=== PATIENT | male | born 1940 | race Caucasian/White ===

== ENCOUNTER 2018-11-23 15:33 | Inpatient (IN) | payer MEDICARE ==
[~2018-11-23] VITALS: Ht 182.9 cm; Wt 93.3 kg
[2018-11-23] MEDS ORDERED: TETANUS-DIPTH-ACEL PERTUSSIS 0.5ML SYRG IM ONE (16:30)
[2018-11-23] MEDS ORDERED: ETOMIDATE (2MG/ML) 20ML VIAL IV ONE (18:00)
[2018-11-23] MEDS ORDERED: hydrALAZINE HCL 20 MG/ML VL IV ONE (18:15)
[2018-11-23 20:41] LABS: Basophils # (auto) 0 uL; Basophils % (auto) 0.2 % (0.0-2.0); Eosinophils # (auto) 0 uL; Eosinophils % (auto) 0.1 % (0.0-7.0); Hemoglobin 16.1 g/dL (13.5-17.5); Lymphocytes # (auto) 1.1 uL; Lymphocytes % (auto) 11.8 % (10.0-50.0); Mean Corpuscular Hemoglobin 31.6 pg (28.0-32.0); Mean Corpuscular Hgb Conc. 34.2 g/dL (32.0-36.0); Mean Corpuscular Volume 92.3 fL (80.0-100.0); Monocytes # (auto) 0.8 uL; Monocytes % (auto) 8.7 % (0.0-12.0); Neutrophils # (auto) 7.7 uL; Neutrophils % (auto) 79.2 % (37.0-80.0); Nucleated Red Blood Cells % 0.1 %; Platelet Count (auto) 184 10^3/uL (140-450); Red Blood Cells 5.09 10^6/uL (4.5-5.90); Red Cell Distribution Width 13.7 % (11.8-14.3); White Blood Cell 9.7 10^3/uL (4.4-10.8)
[2018-11-23 20:56] LABS: INR 0.97 (0.9-1.15); Partial Thromboplastin Time 26.9 sec (23.78-33.04); Prothrombin Time 10.4 sec (9.27-12.13)
[2018-11-23 21:15] LABS: Albumin 3.8 g/dL (3.4-5.0); Calcium 8.7 mg/dL (8.5-10.1); Potassium 3.5 mmol/L (3.5-5.1)
[2018-11-23 21:19] LABS: BUN/Creatinine Ratio 23.6; Bilirubin, Total 0.8 mg/dL (0.2-1.0); Total Protein 7.5 g/dL (6.4-8.2)
[2018-11-23] MEDS ORDERED: ACETAMINOPHEN 500 MG TAB PO PRN (22:00)
[2018-11-23] MEDS ORDERED: MORPHINE SULFATE 4 MG/ML SYR/VIAL IV PRN (22:00)
[2018-11-23] MEDS ORDERED: cloNIDine HCL 0.1 MG TAB PO PRN (22:00)
[2018-11-23] MEDS ORDERED: ALBUTEROL SULF 2.5 MG/0.5ML(0.5%) NEB SOLN NEB PRN (22:00)
[2018-11-23] MEDS: ONDANSETRON HCL 4 MG/2 ML VIAL IV PRN (22:18)
[2018-11-24 01:23] VITALS: BP 156/95
[2018-11-24] MEDS: ONDANSETRON HCL 4 MG/2 ML VIAL IV PRN ×2 (02:58→16:27)
--- NOTE | 2018-11-24 03:30 | NUR ---
PATIENT TRANSFERRED TO ROOM 283 WITH ALL BELONGINGS. NO S/S OF DISTRESS NOTED AT TIME OF TRANSPORT. PATIENT ORIENTED TO NEW ROOM, BED ALARM PLACED ON. CALL LIGHT PLACED WITHIN REACH.
[2018-11-24 04:38] VITALS: BP 154/83
[2018-11-24] MEDS ORDERED: IBUP200C3 PO (06:33)
[2018-11-24] MEDS ORDERED: CETI10TA93 PO (06:33)
[2018-11-24] MEDS ORDERED: DOXA1TAB84 PO (06:33)
[2018-11-24] MEDS ORDERED: DILT120C41 PO (06:33)
[2018-11-24] MEDS ORDERED: LEVO25TA6 PO (06:33)
[2018-11-24] MEDS ORDERED: FLEC50TA15 PO (06:33)
[2018-11-24] MEDS ORDERED: BENA40TA7 PO (06:33)
[2018-11-24] MEDS ORDERED: ASPI325T4 PO (06:33)
[2018-11-24] MEDS ORDERED: LEVO0.5S24 OP (06:33)
[2018-11-24] MEDS ORDERED: CHOL20007 OR (06:33)
[2018-11-24] MEDS ORDERED: DOXY100C2 PO (06:33)
[2018-11-24] MEDS ORDERED: ATOR20TA PO (06:33)
[2018-11-24] MEDS ORDERED: LATA0.0015 EACHEYE (06:33)
[2018-11-24] MEDS ORDERED: PRED1PAK10 PO (06:33)
[2018-11-24] MEDS ORDERED: LORA-622 PO (06:33)
[2018-11-24] MEDS ORDERED: HYDR50TA15 PO (06:33)
[2018-11-24] MEDS ORDERED: BRIM0.159 OP (06:33)
[2018-11-24] MEDS ORDERED: OLOP1DRO2 OP (06:33)
[2018-11-24] MEDS: LEVOTHYROXINE SODIUM 25 MCG TAB PO SCH (06:55)
[2018-11-24 08:32] VITALS: BP 128/63
[2018-11-24 09:17] LABS: Basophils # (auto) 0 uL; Basophils % (auto) 0.3 % (0.0-2.0); Eosinophils # (auto) 0 uL; Eosinophils % (auto) 0.3 % (0.0-7.0); Hematocrit 46.7 % (41.0-53.0); Hemoglobin 15.9 g/dL (13.5-17.5); Mean Corpuscular Hemoglobin 31.4 pg (28.0-32.0); Mean Corpuscular Hgb Conc. 34.2 g/dL (32.0-36.0); Mean Corpuscular Volume 91.9 fL (80.0-100.0); Monocytes % (auto) 9.6 % (0.0-12.0); Neutrophils # (auto) 8.6 uL; Neutrophils % (auto) 80.8 % (37.0-80.0); Nucleated Red Blood Cells % 0.1 %; Platelet Count (auto) 154 10^3/uL (140-450); Red Blood Cells 5.08 10^6/uL (4.5-5.90); Red Cell Distribution Width 13.7 % (11.8-14.3); White Blood Cell 10.6 10^3/uL (4.4-10.8)
[2018-11-24 09:35] LABS: Calcium 8.4 mg/dL (8.5-10.1); Potassium 3.3 mmol/L (3.5-5.1)
[2018-11-24] MEDS ORDERED: ASPirin-EC 81 mg tab PO SCH (10:00)
[2018-11-24] MEDS: OPTH OP SCH ×2 (10:08→22:07)
[2018-11-24] MEDS: BRIMONIDINE 0.2% OPTH Soln 5ml EACHEYE SCH ×2 (10:08→22:13)
[2018-11-24] MEDS: LEVOBUNOLOL 0.5% OP SCH ×2 (10:08→22:07)
[2018-11-24] MEDS: DILTIAZEM HCL 120MG ER CAP PO SCH (10:09)
[2018-11-24] MEDS: OLOPATADINE 0.1% OP SCH ×2 (10:09→22:14)
[2018-11-24] MEDS: hydrALAZINE HCL 25 MG TAB PO SCH ×2 (10:10→22:06)
[2018-11-24] MEDS: BENAZEPRIL HCL 10 MG TAB PO SCH (10:10)
--- NOTE | 2018-11-24 12:40 | NUR ---
PAGED DR. MODI PATIENT REQUESTING HOME MEDS TO BE ADDED TO [facility]
[2018-11-24 13:00] VITALS: BP 129/70
[2018-11-24 16:57] VITALS: BP 154/105
[2018-11-24 22:00] VITALS: BP 148/85
[2018-11-24] MEDS: ATORVASTATIN 20 MG TAB PO SCH (22:06)
[2018-11-24] MEDS: DOXAZOSIN MESYL 2 MG TAB PO SCH (22:07)
[2018-11-24] MEDS: LATANOPROST 0.005 % OPTH(EYE) SOL 2.5ML EACHEYE SCH (22:23)
--- NOTE | 2018-11-25 00:40 | NUR ---
RT NOTE: PT SLEEPING WITH NO DISTRESS NOTED AT THIS TIME. PT HAS 2LPM NC SPO2 96%, HR 68, RR 16. NO TX INDICATED AT THIS TIME.
[2018-11-25 05:00] VITALS: BP 116/64
--- NOTE | 2018-11-25 06:24 | NUR ---
Respiratory note: PRN MN TX NOT WANTED AT THIS TIME. HR 72, RR 14,POX 96% ON RA, BS CLEAR AND DIMINISHED.PT INFORMED TO HIT CALL BUTTON IF FEELING SOB OR WHEEZING.
[2018-11-25] MEDS: LEVOTHYROXINE SODIUM 25 MCG TAB PO SCH (06:58)
[2018-11-25 09:00] VITALS: BP 132/75
[2018-11-25] MEDS: LEVOBUNOLOL 0.5% OP SCH ×2 (10:27→21:44)
[2018-11-25] MEDS: OPTH OP SCH ×2 (10:27→21:44)
[2018-11-25] MEDS: OLOPATADINE 0.1% OP SCH ×2 (10:27→21:46)
[2018-11-25] MEDS: BRIMONIDINE 0.2% OPTH Soln 5ml EACHEYE SCH ×2 (10:27→21:44)
[2018-11-25] MEDS: DILTIAZEM HCL 120MG ER CAP PO SCH (10:28)
[2018-11-25] MEDS: BENAZEPRIL HCL 10 MG TAB PO SCH (10:29)
[2018-11-25] MEDS: hydrALAZINE HCL 25 MG TAB PO SCH ×2 (10:29→21:45)
[2018-11-25 13:00] VITALS: BP 127/70
--- NOTE | 2018-11-25 14:00 | NUR ---
DR. BRUCE PAGED PATIENT NEEDS TO BE CLEARED BY CARDIOLOGY TO HAVE ORIF TOMORROW. NO REPLY.
--- NOTE | 2018-11-25 16:11 | NUR ---
CALLED DR. BRUCE'S OFFICE MESSAGE SENT TO DR. BRUCE REGARDING CARDIO CLEARANCE FOR SURGERY
--- NOTE | 2018-11-25 16:30 | NUR ---
CALL RECEIVED FROM [facility] DR. BRUCE IS STILL IN HOSPITAL. WILL ROUND ON PATIENTS AFTER DONE IN [facility].
[2018-11-25 17:00] VITALS: BP 139/69
[2018-11-25 17:57] LABS: Urine Bacteria NONE SEEN /hpf (None Seen); Urine Blood Negative /uL (Negative); Urine Mucus FEW (None Seen); Urine Specific Gravity 1.018 (1.001-1.035); Urine WBC 2 /hpf (0 - 3)
[2018-11-25] MEDS ORDERED: CALCIUM CARB 500 MG CHEW TAB PO PRN (18:00)
[2018-11-25] MEDS ORDERED: POTASSIUM CHL 20 Meq TABLET PO ONE (18:15)
--- NOTE | 2018-11-25 19:45 | NUR ---
Opening Shift Note Assumed care of patient, awake and alert. No S/S of distress/SOB. Dressing on left leg intact with splint on left foot. Discussed on POC and to be NPO after MN for surgery tomorrow. Consent signed for the procedure, patient declined Blood Transfusion and signed refusal consent, call light within reach, bed alarm on, will continue to monitor for changes Q1hr and PRN.
[2018-11-25 21:18] VITALS: BP 150/87
--- NOTE | 2018-11-25 21:20 | NUR ---
Respiratory note: PT ASSESSED FOR PRN MED NEB TX. HR 65, RR 16,SPO2 995 ON 2L NC,BS COARSE/DIMINISHED. NO SIGNS OF ANY RESPIRATORY DISTRESS NOTED. ADVISED PT TO PLEASE CALL IF NEEDED.
[2018-11-25] MEDS: DOXAZOSIN MESYL 2 MG TAB PO SCH (21:45)
[2018-11-25] MEDS: ATORVASTATIN 20 MG TAB PO SCH (21:45)
[2018-11-25] MEDS: LATANOPROST 0.005 % OPTH(EYE) SOL 2.5ML EACHEYE SCH (22:01)
--- NOTE | 2018-11-26 04:30 | NUR ---
CHG wipes done, all linens changed, maintained on NPO, will continue care
[2018-11-26 05:00] VITALS: BP 134/79
[2018-11-26] MEDS: LEVOTHYROXINE SODIUM 25 MCG TAB PO SCH (06:02)
[2018-11-26 06:33] LABS: Basophils # (auto) 0 uL; Basophils % (auto) 0.4 % (0.0-2.0); Eosinophils # (auto) 0.1 uL; Eosinophils % (auto) 1.4 % (0.0-7.0); Hematocrit 44.8 % (41.0-53.0); Hemoglobin 15.3 g/dL (13.5-17.5); Lymphocytes # (auto) 1.4 uL; Lymphocytes % (auto) 14.3 % (10.0-50.0); Mean Corpuscular Hemoglobin 31.5 pg (28.0-32.0); Mean Corpuscular Hgb Conc. 34.1 g/dL (32.0-36.0); Mean Corpuscular Volume 92.5 fL (80.0-100.0); Monocytes # (auto) 1.2 uL; Monocytes % (auto) 12.9 % (0.0-12.0); Neutrophils # (auto) 6.8 uL; Platelet Count (auto) 137 10^3/uL (140-450); Red Blood Cells 4.85 10^6/uL (4.5-5.90); Red Cell Distribution Width 13.5 % (11.8-14.3); White Blood Cell 9.6 10^3/uL (4.4-10.8)
[2018-11-26 06:39] LABS: Calcium 8.1 mg/dL (8.5-10.1)
[2018-11-26 06:40] LABS: BUN/Creatinine Ratio 17.5
--- NOTE | 2018-11-26 06:40 | NUR ---
Brought down patient to OR, alert/oriented and not in distress. Endorsed to KAY Barrios
[2018-11-26 06:43] LABS: INR 0.96 (0.9-1.15); Partial Thromboplastin Time 26.5 sec (23.78-33.04); Prothrombin Time 10.3 sec (9.27-12.13)
[2018-11-26] MEDS ORDERED: BUPIVACAINE 0.25% INJ 50ML VIAL ONE (06:51)
[2018-11-26] MEDS ORDERED: ceFAZolin 1GM/50ML 50 ML IV ONE (07:19)
[2018-11-26] MEDS ORDERED: ROCURONIUM 10MG/ML 10ML VIAL IV ONE (07:38)
[2018-11-26] MEDS ORDERED: PROPOFOL 10 MG/ML 20 ML IV ONE (07:38)
[2018-11-26] MEDS ORDERED: fentaNYL CITRATE 100 MCG/2 ML VL ONE (07:38)
[2018-11-26] MEDS ORDERED: SUCCINYLCHOLINE CHLORIDE 20 MG/ML 10ML VIAL IV ONE (07:43)
[2018-11-26] MEDS ORDERED: ONDANSETRON HCL 4 MG/2 ML VIAL IV ONE (08:30)
[2018-11-26] MEDS ORDERED: HYDROmorphone HCL 2 MG/ML VL IV PRN (08:30)
[2018-11-26] MEDS ORDERED: MORPHINE SULFATE 4 MG/ML SYR/VIAL IV PRN (08:30)
[2018-11-26] MEDS ORDERED: ePHEDrine SULFATE 50 MG/ML AMP IV PRN (08:30)
[2018-11-26] MEDS ORDERED: hydrALAZINE HCL 20 MG/ML VL IV PRN (08:30)
[2018-11-26 09:23] VITALS: BP 132/77
--- NOTE | 2018-11-26 09:36 | NUR ---
Respiratory note: WENT TO ASSESS PT FOR PRN TX, PT NOT IN ROOM. PT IS HAVING SURGERY AT THIS TIME.
[2018-11-26] MEDS: HYDROmorphone HCL 2 MG/ML VL IV PRN ×4 (11:23→23:03)
[2018-11-26] MEDS: ceFAZolin 1GM/50ML 50 ML IV SCH ×2 (12:00→17:43)
[2018-11-26 12:54] VITALS: BP 158/86
[2018-11-26] MEDS: BRIMONIDINE 0.2% OPTH Soln 5ml EACHEYE SCH ×2 (13:00→22:42)
[2018-11-26] MEDS: hydrALAZINE HCL 25 MG TAB PO SCH ×2 (13:01→22:43)
[2018-11-26] MEDS: OPTH OP SCH ×2 (13:01→22:43)
[2018-11-26] MEDS: OLOPATADINE 0.1% OP SCH ×2 (13:01→22:41)
[2018-11-26] MEDS: LEVOBUNOLOL 0.5% OP SCH ×2 (13:01→22:43)
[2018-11-26] MEDS: DILTIAZEM HCL 120MG ER CAP PO SCH (13:02)
[2018-11-26] MEDS: BENAZEPRIL HCL 10 MG TAB PO SCH (13:03)
[2018-11-26 17:00] VITALS: BP 137/53
--- NOTE | 2018-11-26 19:30 | NUR ---
Opening Shift Note Assumed care of patient, awake and alert. No S/S of distress/SOB. Instructed on POC and to call for assist PRN. Bed in lowest locked position, call light within reach, side rails up x2, fall precautions in place. Will continue to monitor for changes Q1hr and PRN.
--- NOTE | 2018-11-26 20:10 | NUR ---
Respiratory note: PT ASSESSED FOR PRN MED NEB TX. HR 85, RR 16, SPO2 99% ON 2L NC, BS COARSE/DIMINISHED. NO SIGNS OF ANY RESPIRATORY DISTRESS NOTED. ADVISED PT TO PLEASE CALL IF NEEDED.
--- NOTE | 2018-11-26 20:25 | NUR ---
Patient's family per family report, daughter of patient stated that he had fallen at around 1999. Per daughter report, patient "fell and then called my mom, and then she called me to pick her up to bring her but I was already on my way over here." Patient currently sleeping at this time and pain medication was recently given, will ask patient about it once he is awake. Upon assessment no wounds noted. Will continue to monitor. Bed alarm still remains on.
[2018-11-26 21:51] VITALS: BP 137/53
[2018-11-26 22:00] VITALS: BP 161/57
[2018-11-26] MEDS ORDERED: DOXAZOSIN MESYL 2 MG TAB PO SCH (22:00)
[2018-11-26] MEDS ORDERED: hydrALAZINE HCL 25 MG TAB PO SCH (22:00)
--- NOTE | 2018-11-26 22:00 | NUR ---
Rounds Patient now awake. For clarification, asked patient about falling earlier and patient stated "well I tried to get up earlier because I was looking for my phone" asked patient if he did get out of bed and patient stated "yes" asked patient if he fell and patient stated "no, not today, that was the other day, that's why I came in here for" asked patient what happened when he got up patient stated "Well I was looking for my phone so I got up to look for it but I hurt my foot, and then I called my and told her that I set the alarm off when I got up." Verified with patient what happened and asked once more if he fell when he got up, patient stated "no, I didn't fall today." Will continue to monitor, charge nurse aware.
[2018-11-26] MEDS: LATANOPROST 0.005 % OPTH(EYE) SOL 2.5ML EACHEYE SCH (22:42)
[2018-11-26] MEDS: ATORVASTATIN 20 MG TAB PO SCH (22:44)
[2018-11-26] MEDS: DOXAZOSIN MESYL 2 MG TAB PO SCH (22:45)
[2018-11-26] MEDS: ONDANSETRON HCL 4 MG/2 ML VIAL IV PRN (23:03)
--- NOTE | 2018-11-26 23:35 | NUR ---
called and asked why patient wasn't getting pain medication every 2 hours from earlier in the day, educated and informed her that the pain medication is every 2 hours only as needed if the patient was in severe pain. Per she wants pain medication to be given every 2 hours because "he doesn't know, he isn't coherent right now" Informed that pain is what the patient says it is and that pain medication will be given based off of what the patient rates it. Assured that I would assess patient's pain level on my hourly rounds and also informed that the patient has already been instructed to call when he feels like he needs pain medication. aware that I will be assessing patient's pain level throughout the night and will medicate as needed. Will continue care.
[2018-11-27] MEDS: ceFAZolin 1GM/50ML 50 ML IV SCH ×2 (00:05→06:00)
--- NOTE | 2018-11-27 02:20 | NUR ---
IV insertion IV access obtained, via clean sterile technique by inserting 20 gauge catheter at left forarm after 1 attempt. IV secured properly. No trauma to site. Patient tolerated well. NOTE: Patient pulled out old IV, catheter intact, pressure dressing applied.
--- NOTE | 2018-11-27 03:00 | NUR ---
Rounds Patient awake, patient continues to rate his pain at a 3-4/10 since the last time I asked. Asked patient if he needs anything for pain at this moment, patient stated "no, not right now" Patient then verbalized, "Ill call you when I feel I need it." Will continue to monitor.
[2018-11-27 05:00] VITALS: BP 142/97
[2018-11-27] MEDS: LEVOTHYROXINE SODIUM 25 MCG TAB PO SCH (06:01)
[2018-11-27] MEDS: HYDROmorphone HCL 2 MG/ML VL IV PRN ×2 (06:01→16:15)
--- NOTE | 2018-11-27 07:47 | NUR ---
Patient care endorsed Endorsed care to Edelmira ta, patient moved from 283 to room 202 with all personal belongings. I called patients Alexandra to inform her, she verbalized understanding. No distress noted on departure
--- NOTE | 2018-11-27 08:00 | NUR ---
Opening Shift Note Assumed care of patient, awake and alert. No S/S of distress/SOB or pain. Dressing is clean, dry and in tact. Respirations regular and non labored. Instructed on POC and to call for assist PRN, will continue to monitor for changes Q1hr and PRN.
[2018-11-27 09:00] VITALS: BP 135/74
[2018-11-27] MEDS: BRIMONIDINE 0.2% OPTH Soln 5ml EACHEYE SCH ×2 (10:27→22:47)
[2018-11-27] MEDS: OPTH OP SCH ×2 (10:27→22:47)
[2018-11-27] MEDS: LEVOBUNOLOL 0.5% OP SCH ×2 (10:27→22:47)
[2018-11-27] MEDS: hydrALAZINE HCL 25 MG TAB PO SCH ×2 (10:28→22:46)
[2018-11-27] MEDS: OLOPATADINE 0.1% OP SCH ×2 (10:28→22:48)
[2018-11-27] MEDS: BENAZEPRIL HCL 10 MG TAB PO SCH (10:29)
[2018-11-27] MEDS: ASPirin-EC 325mg tab PO SCH (10:29)
[2018-11-27] MEDS: DILTIAZEM HCL 120MG ER CAP PO SCH (10:29)
[2018-11-27] MEDS: CHOLECALCIFEROL (VITD3) 1,000 UNIT TAB PO SCH (10:29)
--- NOTE | 2018-11-27 11:00 | NUR ---
Dr. Espinal at bedside Talking with patient and family about weight bearing and working on getting a boot fit for his foot. pain medicine given.
[2018-11-27 13:00] VITALS: BP 110/56
[2018-11-27] MEDS: HYDROcodone-ACET 10/325MG TAB PO PRN (13:10)
--- NOTE | 2018-11-27 14:30 | NUR ---
PT ASSESSED FOR PRN MED NEB TX. NO TX INDICATED AT THIS TIME. NO RESPIRATORY DISTRESS NOTED. PT AWARE TO CALL RN AND HAVE THEM PAGE RT IF THEY BECOME SOB. SPO2 94% ON RAHR 77 RR 18 B/S CLEAR BILATERALLY.
[2018-11-27 17:00] VITALS: BP 134/70
--- NOTE | 2018-11-27 18:05 | NUR ---
RT NOTE PT WAS SEEN BY RT FOR PRN HHN TX. HR 79, RR 16, BS CLEAR. POX 94% ON ROOM AIR. NO PRN TX INDICATED AT THIS TIME. NO SOB OR DISTRESS NOTED. PT STATES THAT HE KNOWS TO CALL IF TX NEEDED. RT NAME AND PAGER WRITTEN ON PT BOARD. CONT ORDERED Addendum: 11/27/18 at 1833 by Richa Persaud RT Amended: Links added.
--- NOTE | 2018-11-27 19:30 | NUR ---
received pt from day rn poc reviewed
[2018-11-27 22:00] VITALS: BP 123/64
[2018-11-27] MEDS: ATORVASTATIN 20 MG TAB PO SCH (22:46)
[2018-11-27] MEDS: DOXAZOSIN MESYL 2 MG TAB PO SCH (22:46)
[2018-11-27] MEDS: LATANOPROST 0.005 % OPTH(EYE) SOL 2.5ML EACHEYE SCH (22:47)
--- NOTE | 2018-11-28 01:13 | NUR ---
awoke no c/o pain repositioned self, bed alarm intact call light within reach,
[2018-11-28 05:00] VITALS: BP 138/70
[2018-11-28] MEDS: HYDROmorphone HCL 2 MG/ML VL IV PRN (06:19)
[2018-11-28] MEDS: LEVOTHYROXINE SODIUM 25 MCG TAB PO SCH (06:19)
--- NOTE | 2018-11-28 07:06 | NUR ---
report given to am nurse poc reviewed
--- NOTE | 2018-11-28 07:57 | NUR ---
RT NOTE: PT STATED HE DID NOT FEEL LIKE HE NEEDED A TX. PT ON RA SPO2 96 HR 58 RR 14. LUNG SOUNDS CLEAR T/O. PT UNDERSTOOD TO CALL FOR RT IF NEED FOR TX ARISES.
--- NOTE | 2018-11-28 08:00 | NUR ---
Opening Shift Note Assuming care of patient at this time. Patient is awake and alert. Patient states that he is confused and does not know where he is. Patient denies any pain at this time. Patient shows no signs or symptoms of distress or shortness of breath at this time. Bed is locked and lowered with side rails up x2. Patient instructed on plan of care and to call for assistance as needed. Will continue to monitor.
[2018-11-28 09:00] VITALS: BP 135/69
[2018-11-28] MEDS: LEVOBUNOLOL 0.5% OP SCH ×2 (10:00→20:43)
[2018-11-28] MEDS: OPTH OP SCH ×2 (10:00→20:43)
[2018-11-28] MEDS: OLOPATADINE 0.1% OP SCH ×2 (11:02→20:41)
[2018-11-28] MEDS: BRIMONIDINE 0.2% OPTH Soln 5ml EACHEYE SCH ×2 (11:03→20:42)
[2018-11-28] MEDS: CHOLECALCIFEROL (VITD3) 1,000 UNIT TAB PO SCH (11:04)
[2018-11-28] MEDS: hydrALAZINE HCL 25 MG TAB PO SCH ×2 (11:05→20:41)
[2018-11-28] MEDS: ASPirin-EC 325mg tab PO SCH (11:05)
[2018-11-28] MEDS: DILTIAZEM HCL 120MG ER CAP PO SCH (11:06)
--- NOTE | 2018-11-28 11:26 | NUR ---
RE: Medication Called pharmacy regarding inability to pull medication, Rita, from [facility]. Pharmacy states that they will send it in the bullet.
--- NOTE | 2018-11-28 11:30 | NUR ---
Family at bedside Daughter at bedside. Discussed plan of care and addressed all questions and concerns.
[2018-11-28] MEDS: HYDROcodone-ACET 10/325MG TAB PO PRN ×3 (11:43→20:40)
[2018-11-28] MEDS: BENAZEPRIL HCL 10 MG TAB PO SCH (11:43)
[2018-11-28 13:00] VITALS: BP 123/65
--- NOTE | 2018-11-28 13:45 | NUR ---
at bedside Dr. Espinal at bedside with patient and family at bedside. Dr. Espinal changing dressing and giving instructions for incision management at home.
--- NOTE | 2018-11-28 15:54 | NUR ---
Dr. Cerrato states that the patient is to be discharged tomorrow. Will edit the discharge order to reflect the 11/29/18 per doctor's orders.
[2018-11-28 17:00] VITALS: BP 136/71
--- NOTE | 2018-11-28 18:52 | NUR ---
Closing Shift Note Patient is resting in bed comfortably. Patient denies any pain at this time. Patient shows no signs or symptoms of shortness of breath at this time. Encouraged to call for assistance as needed. Will endorse care to the night baker RN.
--- NOTE | 2018-11-28 19:29 | NUR ---
Re: Home medications Patient's brought in new eye drops for patient. Will give to [employer] food shift supervisor RN.
--- NOTE | 2018-11-28 19:55 | NUR ---
RECEIVED REPORT FROM DAY RN POC REVIEWED
[2018-11-28] MEDS: ATORVASTATIN 20 MG TAB PO SCH (20:39)
[2018-11-28] MEDS: DOXAZOSIN MESYL 2 MG TAB PO SCH (20:40)
[2018-11-28] MEDS: LATANOPROST 0.005 % OPTH(EYE) SOL 2.5ML EACHEYE SCH (20:42)
[2018-11-28 22:00] VITALS: BP 133/74
--- NOTE | 2018-11-28 22:14 | NUR ---
RESTING COMFORTABLE WITH HOB UP MEDICATED WITH NORCO FOR C/O LEG PAIN 05/09 CALL LIGHT WITHIN REACH BED ALARM INTACT
[2018-11-29] MEDS: HYDROcodone-ACET 10/325MG TAB PO PRN ×2 (00:19→05:01)
[2018-11-29 05:06] VITALS: BP 138/63
--- NOTE | 2018-11-29 05:55 | NUR ---
AWOKE ASSIST TO BEDSIDE COMMODE, NO WEIGHT ON LEFT LEG, PT VERBALIZED UNDERSTANDING
[2018-11-29] MEDS: LEVOTHYROXINE SODIUM 25 MCG TAB PO SCH (05:59)
--- NOTE | 2018-11-29 06:52 | NUR ---
REPORT GIVEN TO MI MONTOYA POC REVIEWED
--- NOTE | 2018-11-29 07:30 | NUR ---
OPENING NOTE The patient is received alert and oriented times four with no SOB or s/s of distress at this time. The patient has a dressing and protective boot to the left lower extremity s/p ORIF. The patient is resting in bed in the lowest position with call light within reach, will continue to monitor and POC.
[2018-11-29 08:00] VITALS: BP 150/67
--- NOTE | 2018-11-29 09:15 | NUR ---
FAMILY CALLS The patient's family calls and is updated on the patient's discharge status, will continue POC.
[2018-11-29] MEDS: BRIMONIDINE 0.2% OPTH Soln 5ml EACHEYE SCH (09:30)
[2018-11-29] MEDS: LEVOBUNOLOL 0.5% OP SCH (09:30)
[2018-11-29] MEDS: OPTH OP SCH (09:30)
[2018-11-29] MEDS: OLOPATADINE 0.1% OP SCH (09:31)
[2018-11-29] MEDS: hydrALAZINE HCL 25 MG TAB PO SCH (09:32)
[2018-11-29] MEDS: DILTIAZEM HCL 120MG ER CAP PO SCH (09:33)
[2018-11-29] MEDS: BENAZEPRIL HCL 10 MG TAB PO SCH (09:33)
[2018-11-29] MEDS: ASPirin-EC 325mg tab PO SCH (09:33)
[2018-11-29] MEDS: CHOLECALCIFEROL (VITD3) 1,000 UNIT TAB PO SCH (09:33)
[2018-11-29 12:00] VITALS: BP 147/86
--- NOTE | 2018-11-29 12:30 | NUR ---
Rounds Patient awake and alert. No S/S of distress/SOB or pain. Will continue to monitor changes q1hr and PRN.
--- NOTE | 2018-11-29 13:48 | NUR ---
Respiratory note: ROUTINE PRN CHECK. HR 87, RR 16, POX 97% ON RA. PT WAS USING THE BATHROOM. no sob or distress noted.
--- NOTE | 2018-11-29 15:45 | NUR ---
Discharge instructions given as ordered. Encourage to follow up with PMD as instructed. All questions and concerns addressed. Patient verbalized understanding. Medication reconciliation form completed and copy given to patient. Home medications held in Pharmacy returned to patient. IV removed with catheter intact, pressure dressing applied, bundy catheter removed. Telemetry unit returned to [facility]. Patient taken to vehicle via wheelchair with all personal belongings, accompanied by staff and family member. No distress noted at time of departure.
--- NOTE | 2018-11-29 16:32 | NUR ---
assessment Patient is a 78 year old male who is alert and oriented. Patients cognitive abilities are intact. Prior to admission patient lived home with family and functioned independently. Patient informed me he is able to care for his own ADLs. Per patient he will return home to his prior living arrangements post discharge and family will transport him home. Patient has a rollator for home use. I informed patient he has a right to speak to a social services designee regarding all care. I informed patient he has a right to participate in any and all discharge planning. Patient is aware of visiting hours on the hospital floor. I informed patient he has a right to privacy. Patient does not have a POA and advanced directive. I have offered patient information on POA and advanced directives. I informed the patient the advantages and benefits of having an Advanced Directive. Patient verbalized understanding and agreed to discharge plan. Per consult standard wheelchair with elevated left leg rest. MD order has been sent to [facility]. Per Rafa at [facility] they will have to order 18 inch wheelchair. I spoke with Alexandra tripp and she is calling [facility] to see if patient will fit in 16 inch and then she will pick wheelchair [facility]. [facility] safety, vitals. Patient and his have been given a list of medicare providers. Patient has no preference. MD order has been sent to [facility]. Arnie Anderson service will start on 12/01/18. Addendum: 11/29/18 at 1639 by Cathie Cruz Amended: Links added.
--- NOTE | 2018-11-29 18:00 | NUR ---
FAMILY CALLS MULTIPLE TIMES The patient's family calls and states that he is missing an eye drop medication. The patient received all medications from the medication [facility] and from the pharmacy. The pharmacy is called and the pharmacy states that they have no patient's own medications in the pharmacy. The patient's family is made aware and they acknowledge the information. The patient's family stands by their statement that they provided a patient's own medication that was not returned.
== END 2018-11-29 15:45 | disposition home health service (06) | DRG 494 ==
LOC: ER 15:33 → EDBD 15:33 → TELE 21:57 → TELE-WESTW 22:54 → TELE-CENTR 11-27 07:45
PROVIDERS: ADMIT Nurse Practitioner Family; ATTEND Internal Medicine Pulmonary Disease
PROC: 0MQR0ZZ Repair Left Ankle Bursa and Ligament, Open Approach (ICD-10-PCS; 2018-11-26)
PROC: 0SSG0ZZ Reposition Left Ankle Joint, Open Approach (ICD-10-PCS; 2018-11-26)
PROC: 2W3RX1Z Immobilization of Left Lower Leg using Splint (ICD-10-PCS; 2018-11-26)
PROC: 0QSK04Z Reposition Left Fibula with Internal Fixation Device, Open Approach (ICD-10-PCS; principal; 2018-11-26 07:35)
DX: S82.62XA Displaced fracture of lateral malleolus of left fibula, initial encounter for closed fracture (principal); I11.9 Hypertensive heart disease without heart failure; S93.422A Sprain of deltoid ligament of left ankle, initial encounter; Y93.89 Activity, other specified; Y92.89 Other specified places as the place of occurrence of the external cause; Y99.8 Other external cause status; W01.0XXA Fall on same level from slipping, tripping and stumbling without subsequent striking against object, initial encounter; X50.1XXA Overexertion from prolonged static or awkward postures, initial encounter; Z82.49 Family history of ischemic heart disease and other diseases of the circulatory system; Z86.14 Personal history of Methicillin resistant Staphylococcus aureus infection; Z23 Encounter for immunization; S93.432A Sprain of tibiofibular ligament of left ankle, initial encounter
CPT/HCPCS: 36415; 70450; 71045; 72125; 73600; 73610; 76001; 80048; 80053; 81001; 83735; 85025; 85610; 85730; 86850; 86900; 86901; 87081; 90471; 90715; 93005; 93306; 94640; 94761; 96374; 97163; 97530; A6257; G0378; J0330; J0690; J2405; J2704; J3490

== ENCOUNTER 2018-12-10 16:02 | Inpatient (IN) | payer MEDICARE ==
[~2018-12-10] VITALS: Ht 177.8 cm; Wt 82.9 kg
[~2018-12-10 16:02] MED LIST: ASPI325T4 PO; ATOR20TA PO; BENA40TA7 PO; BRIM0.159 OP; CETI10TA93 PO; CHOL20007 OR; DILT120C41 PO; DOXA1TAB84 PO; DOXY100C2 PO; FLEC50TA15 PO; HYDR50TA15 PO; IBUP200C3 PO; LATA0.0015 EACHEYE; LEVO0.5S24 OP; LEVO25TA6 PO; LORA-622 PO; OLOP1DRO2 OP; PRED1PAK10 PO
[2018-12-10 18:12] LABS: Basophils # (auto) 0 uL; Basophils % (auto) 0.5 % (0.0-2.0); Eosinophils # (auto) 0.2 uL; Eosinophils % (auto) 2.5 % (0.0-7.0); Hematocrit 43.2 % (41.0-53.0); Hemoglobin 14.8 g/dL (13.5-17.5); Mean Corpuscular Hemoglobin 30.9 pg (28.0-32.0); Mean Corpuscular Hgb Conc. 34.2 g/dL (32.0-36.0); Mean Corpuscular Volume 90.4 fL (80.0-100.0); Monocytes # (auto) 0.9 uL; Monocytes % (auto) 13.7 % (0.0-12.0); Neutrophils # (auto) 4.4 uL; Neutrophils % (auto) 68.3 % (37.0-80.0); Nucleated Red Blood Cells % 0.1 %; Platelet Count (auto) 399 10^3/uL (140-450); Red Blood Cells 4.77 10^6/uL (4.5-5.90); Red Cell Distribution Width 13.1 % (11.8-14.3); White Blood Cell 6.4 10^3/uL (4.4-10.8)
[2018-12-10 18:29] LABS: Albumin 3.1 g/dL (3.4-5.0); Anion Gap 8 (5-15); Blood Urea Nitrogen 7 mg/dL (7-18); Carbon Dioxide 25 mmol/L (21-32); Chloride 86 mmol/L (98-107); Glucose 147 mg/dL (74-106); Magnesium 2.2 mg/dL (1.6-2.6)
[2018-12-10 18:35] LABS: Alanine Aminotransferase 25 U/L (16-61); Alkaline Phosphatase 99 U/L (45-117); Aspartate Aminotransferase 26 U/L (15-37); BUN/Creatinine Ratio 9.1; Bilirubin, Total 0.5 mg/dL (0.2-1.0); GFR African American 126 mL/min; GFR Non-African American 104 mL/min; Total Protein 7.3 g/dL (6.4-8.2)
[2018-12-10 18:40] LABS: Sodium 119 mmol/L (136-145)
[2018-12-10] MEDS ORDERED: SODIUM CHLORIDE 0.9% 1,000 ML IVB ONE (19:02)
[2018-12-10 19:25] LABS: INR 0.98 (0.9-1.15); Partial Thromboplastin Time 29.6 sec (23.78-33.04); Prothrombin Time 10.5 sec (9.27-12.13)
[2018-12-10] MEDS ORDERED: hydrALAZINE HCL 25 MG TAB PO ONE (19:45)
[2018-12-10] MEDS ORDERED: LIDOCAINE 2% JELLY 11ml (GLYDO) ONE (20:22)
[2018-12-10] MEDS ORDERED: SODIUM CHL 3% 500 ML IV ONE ×2 (21:00→21:15)
[2018-12-10] MEDS ORDERED: ONDANSETRON HCL 4 MG/2 ML VIAL IV PRN (21:15)
[2018-12-10] MEDS ORDERED: NITROGLYCERIN 0.4 MG SL TAB SL PRN (21:15)
[2018-12-10] MEDS ORDERED: TEMAZEPAM 15 MG CAP PO PRN (21:15)
[2018-12-10] MEDS ORDERED: MORPHINE SULFATE 10 MG/ML INJ 1ML SDV IV PRN (21:15)
[2018-12-10] MEDS ORDERED: HYDROcodone-ACET 5/325MG TAB PO PRN (21:15)
[2018-12-10] MEDS ORDERED: ACETAMINOPHEN 325 MG TAB PO PRN (21:15)
[2018-12-10 21:23] LABS: Urine Bacteria NONE SEEN /hpf (None Seen); Urine Blood Negative /uL (Negative); Urine Mucus FEW (None Seen); Urine Specific Gravity 1.009 (1.001-1.035); Urine WBC 1 /hpf (0 - 3)
[2018-12-10] MEDS ORDERED: LACTULOSE 20Gm/30ML SOLN PO ONE (21:45)
[2018-12-10] MEDS: ATORVASTATIN 20 MG TAB PO SCH (22:10)
[2018-12-10] MEDS: DOCUSATE SOD 100 MG CAP PO SCH (22:18)
[2018-12-10] MEDS: DOXAZOSIN MESYL 2 MG TAB PO SCH (22:30)
[2018-12-11 03:27] LABS: Hematocrit 40.1 % (41.0-53.0)
[2018-12-11 06:33] LABS: Basophils # (auto) 0 uL; Basophils % (auto) 0.4 % (0.0-2.0); Eosinophils # (auto) 0.1 uL; Eosinophils % (auto) 1.5 % (0.0-7.0); Hematocrit 42.1 % (41.0-53.0); Hemoglobin 14.6 g/dL (13.5-17.5); Lymphocytes # (auto) 1.1 uL; Lymphocytes % (auto) 16.1 % (10.0-50.0); Mean Corpuscular Hemoglobin 31.1 pg (28.0-32.0); Mean Corpuscular Hgb Conc. 34.8 g/dL (32.0-36.0); Mean Corpuscular Volume 89.4 fL (80.0-100.0); Monocytes # (auto) 0.9 uL; Monocytes % (auto) 12.9 % (0.0-12.0); Neutrophils # (auto) 4.6 uL; Neutrophils % (auto) 69.1 % (37.0-80.0); Nucleated Red Blood Cells % 0.1 %; Platelet Count (auto) 373 10^3/uL (140-450); Red Blood Cells 4.71 10^6/uL (4.5-5.90); Red Cell Distribution Width 12.9 % (11.8-14.3); White Blood Cell 6.7 10^3/uL (4.4-10.8)
[2018-12-11 06:50] LABS: Albumin 2.8 g/dL (3.4-5.0)
[2018-12-11 06:55] LABS: BUN/Creatinine Ratio 6.2; Bilirubin, Total 0.7 mg/dL (0.2-1.0); Total Protein 6.2 g/dL (6.4-8.2)
[2018-12-11] MEDS: LEVOTHYROXINE SODIUM 25 MCG TAB PO SCH (07:01)
[2018-12-11] MEDS: BENAZEPRIL HCL 10 MG TAB PO SCH (10:51)
[2018-12-11] MEDS: DOCUSATE SOD 100 MG CAP PO SCH ×2 (10:51→21:40)
[2018-12-11] MEDS: DILTIAZEM HCL 120MG ER CAP PO SCH (10:51)
[2018-12-11] MEDS ORDERED: POTASSIUM CHLORIDE 8 MEQ TAB PO ONE (12:45)
[2018-12-11] MEDS ORDERED: FUROSEMIDE 20 MG TAB PO ONE (12:45)
[2018-12-11 17:19] VITALS: BP 131/78
--- NOTE | 2018-12-11 18:00 | NUR ---
Telemetry admit from ER [facility] HUNTER admitted to Telemetry unit after SBAR received. Patient oriented to ADITYA EDMOND RN primary RN, unit, room, bed, and unit policies regarding patient care and visiting hours. Patient now on continuous telemetry monitoring, tele box # 4 and telemetry reading on arrival to unit is NSR 84. Patient placed on bedside oxygen, weighed by bedscale and encouraged to call if they need something. All questions and concerns addressed, patient verbalized understanding.
[2018-12-11] MEDS: Ensure Enlive Strawberry 8oz Bottle PO SCH (18:14)
--- NOTE | 2018-12-11 19:30 | NUR ---
Opening shift note Patient in bed alert and oriented x 4, verbally coherent able to make needs known. Patient's respiration even and unlabored, denies pain at this time. Plan of care discussed, family wants all eye drop home medication included in orders, per family, Dr. Chandler aware. Family administered eye drops to patient (Levobunolol, Brimonidine Tartrate and Latanoprost) each medication given 5 minutes apart. Family took medication home and informed nurse, they will bring again in the am when orders are in. Will endorse to am shift RN.
[2018-12-11] MEDS: ATORVASTATIN 20 MG TAB PO SCH (21:41)
[2018-12-11] MEDS: DOXAZOSIN MESYL 2 MG TAB PO SCH (21:41)
[2018-12-11 22:00] VITALS: BP 144/73
--- NOTE | 2018-12-12 04:33 | NUR ---
Urine emani cx specimen sample obtained and sent to lab via bullet.
[2018-12-12 05:20] VITALS: BP 112/60
--- NOTE | 2018-12-12 06:29 | NUR ---
MRSA SWAB DONE. SPECIMEN SAMPLE SENT TO LAB VIA BULLET.
[2018-12-12] MEDS: LEVOTHYROXINE SODIUM 25 MCG TAB PO SCH (06:32)
[2018-12-12 06:54] LABS: Basophils # (auto) 0 uL; Basophils % (auto) 0.7 % (0.0-2.0); Eosinophils # (auto) 0.1 uL; Eosinophils % (auto) 1.5 % (0.0-7.0); Hemoglobin 13.3 g/dL (13.5-17.5); Lymphocytes # (auto) 1.4 uL; Lymphocytes % (auto) 21.3 % (10.0-50.0); Mean Corpuscular Hemoglobin 31.4 pg (28.0-32.0); Mean Corpuscular Volume 89.7 fL (80.0-100.0); Monocytes % (auto) 15.3 % (0.0-12.0); Neutrophils # (auto) 4.1 uL; Neutrophils % (auto) 61.2 % (37.0-80.0); Nucleated Red Blood Cells % 0.1 %; Platelet Count (auto) 363 10^3/uL (140-450); Red Blood Cells 4.24 10^6/uL (4.5-5.90); Red Cell Distribution Width 13.3 % (11.8-14.3); White Blood Cell 6.6 10^3/uL (4.4-10.8)
[2018-12-12 07:08] LABS: Potassium 3.8 mmol/L (3.5-5.1)
[2018-12-12 07:15] LABS: BUN/Creatinine Ratio 12.3; Calcium 7.8 mg/dL (8.5-10.1)
--- NOTE | 2018-12-12 07:30 | NUR ---
Opening Shift Note Assumed care of patient, awake, alert, and oriented x4. No S/S of distress/SOB or pain. IV in left AC 20 gauge asymptomatic, intact, and saline locked. Rodriguez catheter patent and draining clear kaba urine to gravity. Bed locked and in lowest position and call light is within reach. Instructed on POC and to call for assist PRN, and patient verbalized understanding. Patient's two daughters are at bedside and assisting with care of the patient. Will continue to monitor for changes Q1hr and PRN.
[2018-12-12] MEDS: Ensure Enlive Strawberry 8oz Bottle PO SCH ×3 (08:00→17:05)
[2018-12-12 08:55] VITALS: BP 132/76
[2018-12-12] MEDS: POTASSIUM CHLORIDE 8 MEQ TAB PO SCH (10:41)
[2018-12-12] MEDS: FUROSEMIDE 20 MG TAB PO SCH (10:41)
[2018-12-12] MEDS: DILTIAZEM HCL 120MG ER CAP PO SCH (10:42)
[2018-12-12] MEDS: DOCUSATE SOD 100 MG CAP PO SCH ×2 (10:43→22:36)
[2018-12-12] MEDS: BENAZEPRIL HCL 10 MG TAB PO SCH (10:43)
--- NOTE | 2018-12-12 11:00 | NUR ---
PAGED PHYSICAL THERAPIST
[2018-12-12 13:00] VITALS: BP 110/60
[2018-12-12 16:48] VITALS: BP 129/70
--- NOTE | 2018-12-12 16:51 | NUR ---
DR. GANNON AD BEDSIDE.
[2018-12-12] MEDS ORDERED: PSEUSYP56 OR (17:25)
--- NOTE | 2018-12-12 19:00 | NUR ---
ASSUMED PATIENT CARE- NOC SHIFT PATIENT IS ALERT AND ORIENTED, ANSWERS IN COMPLETE SENTENCES AND MAKES APPROPRIATE EYE CONTACT. PATIENT IS RESTING IN BED, DENIES PAIN AT THIS TIME. NO S/SX OF DISTRESS OR SOB. PATIENT IS IN BED,BED IS LOCKED IN LOWEST POSITION, BED RAILS UP X2 AND HEAD OF BED IS UP >30 DEGREES FOR SAFETY PRECAUTIONS. BEDSIDE TABLE WITHIN REACH, CALL LIGHT WITHIN REACH. DISCUSSED POC WITH PATIENT AND INSTRUCTED PATIENT TO CALL PRN; PATIENT VERBALIZED UNDERSTANDING. WILL CONTINUE TO MONITOR Q1H AND PRN.
--- NOTE | 2018-12-12 20:00 | NUR ---
PROVIDED PATIENT WITH BEDPAN. PATIENT DID NOT HAVE A BOWEL AT THIS TIME. PROVIDED NAZARIO CARE AND PARTIAL LINEN CHANGE. PATIENT DOES NOT REPORT PAIN AT THIS TIME.
[2018-12-12 22:00] VITALS: BP 123/67
[2018-12-12] MEDS ORDERED: LATANOPROST 0.005 % OPTH(EYE) SOL 2.5ML EACHEYE SCH (22:00)
[2018-12-12] MEDS: BRIMONIDINE 0.2% OPTH Soln 5ml EACHEYE SCH (22:34)
[2018-12-12] MEDS: DOXAZOSIN MESYL 2 MG TAB PO SCH (22:35)
[2018-12-12] MEDS: ATORVASTATIN 20 MG TAB PO SCH (22:36)
--- NOTE | 2018-12-13 04:38 | NUR ---
PATIENT REQUESTED COUGH MEDICATION; WILL ENDORSE TO DAY SHIFT NURSE. COUGH IS NON PRODUCTIVE.
[2018-12-13 05:00] VITALS: BP 109/67
[2018-12-13 06:12] LABS: Basophils # (auto) 0.1 uL; Eosinophils # (auto) 0.2 uL; Eosinophils % (auto) 3.5 % (0.0-7.0); Hematocrit 39.4 % (41.0-53.0); Hemoglobin 13.7 g/dL (13.5-17.5); Lymphocytes # (auto) 1.7 uL; Lymphocytes % (auto) 24.5 % (10.0-50.0); Mean Corpuscular Hemoglobin 31.3 pg (28.0-32.0); Mean Corpuscular Hgb Conc. 34.7 g/dL (32.0-36.0); Mean Corpuscular Volume 90.1 fL (80.0-100.0); Monocytes # (auto) 0.9 uL; Monocytes % (auto) 13.1 % (0.0-12.0); Neutrophils % (auto) 57.9 % (37.0-80.0); Nucleated Red Blood Cells % 0.1 %; Platelet Count (auto) 375 10^3/uL (140-450); Red Blood Cells 4.37 10^6/uL (4.5-5.90); Red Cell Distribution Width 13.2 % (11.8-14.3); White Blood Cell 6.8 10^3/uL (4.4-10.8)
[2018-12-13 06:25] LABS: Anion Gap 7 (5-15); BUN/Creatinine Ratio 21.1; Blood Urea Nitrogen 12 mg/dL (7-18); Calcium 7.9 mg/dL (8.5-10.1); Carbon Dioxide 24 mmol/L (21-32); Chloride 98 mmol/L (98-107); Glucose 91 mg/dL (74-106); Potassium 3.8 mmol/L (3.5-5.1); Sodium 129 mmol/L (136-145)
[2018-12-13] MEDS: LEVOTHYROXINE SODIUM 25 MCG TAB PO SCH (06:27)
[2018-12-13 06:30] LABS: GFR African American > 60 mL/min; GFR Non-African American > 60 mL/min
--- NOTE | 2018-12-13 07:47 | NUR ---
ENDORSED PATIENT CARE TO DAY SHIFT NURSE VIVI VILLANUEVA.
[2018-12-13 09:00] VITALS: BP 134/78
[2018-12-13] MEDS: DILTIAZEM HCL 120MG ER CAP PO SCH (10:10)
[2018-12-13] MEDS: DOCUSATE SOD 100 MG CAP PO SCH (10:10)
[2018-12-13] MEDS: BENAZEPRIL HCL 10 MG TAB PO SCH (10:11)
[2018-12-13] MEDS: POTASSIUM CHLORIDE 8 MEQ TAB PO SCH (10:11)
[2018-12-13] MEDS: FUROSEMIDE 20 MG TAB PO SCH (10:11)
[2018-12-13] MEDS: BRIMONIDINE 0.2% OPTH Soln 5ml EACHEYE SCH (10:12)
[2018-12-13 13:00] VITALS: BP 103/59
--- NOTE | 2018-12-13 16:58 | NUR ---
DISCHARGE NOTE Discharge instructions given as ordered. Encourage to follow up with PMD as instructed. All questions and concerns addressed. Patient verbalized understanding. Medication reconciliation form completed and copy given to patient. Home medications held in Pharmacy returned to patient. IV removed with catheter intact, pressure dressing applied, bundy catheter removed. Telemetry unit returned to ICU. Patient taken to vehicle via wheelchair with all personal belongings, accompanied by staff and family member. No distress noted at time of departure.
== END 2018-12-13 16:58 | disposition home or self-care (01) | DRG 693 ==
LOC: ER 16:08 → TELE 21:13 → TELE-WESTW 12-11 17:03
PROVIDERS: ADMIT Nurse Practitioner; ATTEND Internal Medicine
DX: N13.30 Unspecified hydronephrosis (principal); I50.43 Acute on chronic combined systolic (congestive) and diastolic (congestive) heart failure; E87.1 Hypo-osmolality and hyponatremia; E44.0 Moderate protein-calorie malnutrition; J98.11 Atelectasis; E86.0 Dehydration; E03.9 Hypothyroidism, unspecified; E78.5 Hyperlipidemia, unspecified; E83.51 Hypocalcemia; H40.9 Unspecified glaucoma; I11.0 Hypertensive heart disease with heart failure; I70.0 Atherosclerosis of aorta; N40.1 Benign prostatic hyperplasia with lower urinary tract symptoms; R33.8 Other retention of urine; Z82.49 Family history of ischemic heart disease and other diseases of the circulatory system; Z68.26 Body mass index [BMI] 26.0-26.9, adult
CPT/HCPCS: 36415; 51702; 70450; 71045; 74176; 80048; 80053; 81001; 83735; 83930; 83935; 84295; 84300; 84443; 84484; 85014; 85018; 85025; 85610; 85730; 87081; 87086; 93005; 94761; 96360; 97116; 97530; 99291; G0378

== ENCOUNTER 2020-04-19 21:05 | Inpatient (IN) | payer MEDICARE ==
[~2020-04-19] VITALS: Ht 182.9 cm; Wt 82.3 kg
[~2020-04-19 21:05] MED LIST changes: -DOXY100C2 PO; -FLEC50TA15 PO; -HYDR50TA15 PO; -LATA0.0015 EACHEYE; +LATA0.0019 EACHEYE; -LEVO0.5S24 OP; +LEVO0.5S6 OP; -OLOP1DRO2 OP; +OLOP1DRO5 OP; -PRED1PAK10 PO; +PSEUSYP56 OR
[2020-04-19 21:41] LABS: Basophils # (auto) 0.1 10 ^3/uL (0-0.2); Basophils % (auto) 0.7 % (0.0-2.0); Eosinophils # (auto) 0.2 10 ^3/uL (0-0.8); Eosinophils % (auto) 1.6 % (0.0-7.0); Hemoglobin 13.5 g/dL (13.5-17.5); Lymphocytes # (auto) 1.2 10 ^3/uL (0.4-5.4); Lymphocytes % (auto) 12.9 % (10.0-50.0); Mean Corpuscular Hemoglobin 30.5 pg (28.0-32.0); Mean Corpuscular Hgb Conc. 33.8 g/dL (32.0-36.0); Mean Corpuscular Volume 90.3 fL (80.0-100.0); Monocytes % (auto) 11.2 % (0.0-12.0); Neutrophils # (auto) 6.8 10 ^3/uL (1.6-8.6); Neutrophils % (auto) 73.6 % (37.0-80.0); Nucleated Red Blood Cells % 0.1 %; Platelet Count (auto) 326 10^3/uL (140-450); Red Blood Cells 4.43 10^6/uL (4.5-5.90); Red Cell Distribution Width 14.6 % (11.8-14.3); White Blood Cell 9.2 10^3/uL (4.4-10.8)
[2020-04-19 21:56] LABS: Albumin 2.5 g/dL (3.4-5.0); Potassium 4.4 mmol/L (3.5-5.1)
[2020-04-19 22:02] LABS: BUN/Creatinine Ratio 20.2; Bilirubin, Total 0.4 mg/dL (0.2-1.0); Total Protein 6.7 g/dL (6.4-8.2)
[2020-04-19] MEDS ORDERED: SODIUM CHLORIDE 0.9% 1,000 ML IV ONE (22:45)
[2020-04-19 23:09] LABS: INR 1.09 (0.9-1.15); Partial Thromboplastin Time 27.1 sec (23.64-32.05)
[2020-04-20 00:24] LABS: Urine Bacteria FEW /hpf (None Seen); Urine Blood 1+ /uL (Negative); Urine Budding Yeast MODERATE /hpf (None Seen); Urine Hyaline Cast MOD /lpf (0 - 2); Urine Mucus FEW (None Seen); Urine Specific Gravity 1.011 (1.001-1.035); Urine WBC 88 /hpf (0 - 3)
[2020-04-20] MEDS ORDERED: cefTRIAXone 1GM/50ML D5W 50 ML IV ONE (01:00)
[2020-04-20] MEDS ORDERED: IOHEXOL 350 MG/ML 100ML IJ ONE (01:16)
[2020-04-20] MEDS ORDERED: TEMAZEPAM 15 MG CAP PO PRN (06:45)
[2020-04-20] MEDS ORDERED: ONDANSETRON HCL 4 MG/2 ML VIAL IV PRN (06:45)
[2020-04-20] MEDS ORDERED: ACETAMINOPHEN 325 MG TAB PO PRN (06:45)
[2020-04-20] MEDS: SODIUM CHLORIDE 0.9% 1,000 ML IV SCH ×2 (06:51→20:05)
[2020-04-20] MEDS ORDERED: LEVOTHYROXINE SODIUM 25 MCG TAB PO SCH (07:00)
[2020-04-20 09:45] VITALS: BP 176/92
[2020-04-20] MEDS: ENOXAPARIN SOD 40 MG/0.4 ML SYRINGE SC SCH (11:34)
[2020-04-20] MEDS: FAMOTIDINE 20 MG TAB PO SCH ×2 (11:35→20:43)
[2020-04-20] MEDS: dilTIAZem 120MG ER CAP PO SCH (11:36)
[2020-04-20 12:00] VITALS: BP 179/98
[2020-04-20] MEDS ORDERED: GASTROGRAFIN 120 ML SOL ONE (12:11)
[2020-04-20] MEDS ORDERED: CARV6.25 PO (14:26)
[2020-04-20] MEDS ORDERED: FURO1TAB33 PO (14:26)
[2020-04-20] MEDS ORDERED: SACU1TAB PO (14:26)
[2020-04-20] MEDS ORDERED: MED20T PO (14:26)
[2020-04-20] MEDS ORDERED: AMIO200T33 PO (14:26)
[2020-04-20] MEDS ORDERED: RIVA20TA PO (14:26)
[2020-04-20] MEDS ORDERED: POTA10TA51 PO (14:26)
[2020-04-20] MEDS ORDERED: GABA300C10 PO (14:26)
[2020-04-20 17:00] VITALS: BP 153/79
[2020-04-20] MEDS: ATORVASTATIN 20 MG TAB PO SCH (20:43)
[2020-04-20] MEDS: HYDROcodone-ACET 5/325MG TAB PO PRN (21:10)
[2020-04-20] MEDS: CARVEDILOL 3.125 MG TAB PO SCH ×2 (22:00→22:43)
[2020-04-20 22:01] VITALS: BP 170/86
[2020-04-20] MEDS: SACUBITRIL-VALSARTAN 24mg/26mg TAB PO SCH (22:40)
[2020-04-20] MEDS: FUROSEMIDE 20 MG TAB PO SCH (22:42)
[2020-04-20] MEDS: DOXAZOSIN MESYL 2 MG TAB PO SCH (22:44)
[2020-04-21 05:00] VITALS: BP_SYST 108; BP_SYST 137; BP_DIAS 47; BP_DIAS 71
[2020-04-21 05:48] LABS: Basophils # (auto) 0.1 10 ^3/uL (0-0.2); Basophils % (auto) 0.9 % (0.0-2.0); Eosinophils # (auto) 0.1 10 ^3/uL (0-0.8); Eosinophils % (auto) 1.5 % (0.0-7.0); Hematocrit 37.6 % (41.0-53.0); Hemoglobin 12.8 g/dL (13.5-17.5); Lymphocytes # (auto) 1.5 10 ^3/uL (0.4-5.4); Lymphocytes % (auto) 16.1 % (10.0-50.0); Mean Corpuscular Hemoglobin 30.4 pg (28.0-32.0); Mean Corpuscular Hgb Conc. 33.9 g/dL (32.0-36.0); Mean Corpuscular Volume 89.7 fL (80.0-100.0); Monocytes # (auto) 0.9 10 ^3/uL (0-1.3); Monocytes % (auto) 9.9 % (0.0-12.0); Neutrophils # (auto) 6.7 10 ^3/uL (1.6-8.6); Neutrophils % (auto) 71.6 % (37.0-80.0); Platelet Count (auto) 332 10^3/uL (140-450); Red Blood Cells 4.19 10^6/uL (4.5-5.90); Red Cell Distribution Width 14.1 % (11.8-14.3); White Blood Cell 9.3 10^3/uL (4.4-10.8)
[2020-04-21 06:12] LABS: Calcium 8.2 mg/dL (8.5-10.1); Potassium 3.6 mmol/L (3.5-5.1)
[2020-04-21 06:18] LABS: BUN/Creatinine Ratio 21.3
[2020-04-21] MEDS: LEVOTHYROXINE SODIUM 25 MCG TAB PO SCH (06:31)
[2020-04-21 08:00] VITALS: BP 158/86
[2020-04-21] MEDS: cefTRIAXone 1GM/50ML D5W 50 ML IV SCH (09:18)
[2020-04-21] MEDS: SODIUM CHLORIDE 0.9% 1,000 ML IV SCH ×2 (09:25→20:05)
[2020-04-21] MEDS: FAMOTIDINE 20 MG TAB PO SCH ×2 (11:13→22:52)
[2020-04-21] MEDS: SACUBITRIL-VALSARTAN 24mg/26mg TAB PO SCH ×2 (11:13→22:51)
[2020-04-21] MEDS: FUROSEMIDE 20 MG TAB PO SCH (11:14)
[2020-04-21] MEDS: dilTIAZem 120MG ER CAP PO SCH (11:14)
[2020-04-21] MEDS: ENOXAPARIN SOD 40 MG/0.4 ML SYRINGE SC SCH (11:15)
[2020-04-21] MEDS: CARVEDILOL 3.125 MG TAB PO SCH ×2 (11:15→22:52)
[2020-04-21 12:00] VITALS: BP 154/91
[2020-04-21 16:53] VITALS: BP 156/79
[2020-04-21 22:00] VITALS: BP 139/69
[2020-04-21] MEDS: DOXAZOSIN MESYL 2 MG TAB PO SCH (22:52)
[2020-04-21] MEDS: ATORVASTATIN 20 MG TAB PO SCH (22:52)
[2020-04-22] MEDS: SODIUM CHLORIDE 0.9% 1,000 ML IV SCH ×2 (03:45→11:45)
[2020-04-22 05:50] VITALS: BP 146/69
[2020-04-22] MEDS: LEVOTHYROXINE SODIUM 25 MCG TAB PO SCH (06:43)
[2020-04-22 08:00] VITALS: BP 147/89
[2020-04-22] MEDS: cefTRIAXone 1GM/50ML D5W 50 ML IV SCH (08:19)
[2020-04-22 08:55] VITALS: BP 147/89
[2020-04-22] MEDS: dilTIAZem 120MG ER CAP PO SCH (09:36)
[2020-04-22] MEDS: SACUBITRIL-VALSARTAN 24mg/26mg TAB PO SCH ×2 (09:39→21:39)
[2020-04-22] MEDS: CARVEDILOL 3.125 MG TAB PO SCH ×2 (09:39→21:39)
[2020-04-22] MEDS: FUROSEMIDE 20 MG TAB PO SCH (09:41)
[2020-04-22] MEDS: FAMOTIDINE 20 MG TAB PO SCH ×2 (09:41→21:39)
[2020-04-22] MEDS: ENOXAPARIN SOD 40 MG/0.4 ML SYRINGE SC SCH (09:42)
[2020-04-22 13:00] VITALS: BP 121/54
[2020-04-22 14:04] LABS: % Iron Saturation 24.6 % (20-55)
[2020-04-22] MEDS: CARBIDOPA W LEVODOPA 25/100mg TABLET PO SCH ×2 (14:29→21:46)
[2020-04-22 14:34] LABS: Ferritin 416.7 ng/mL (10-322)
[2020-04-22] MEDS: HYDROcodone-ACET 5/325MG TAB PO PRN ×2 (15:27→21:48)
[2020-04-22 17:00] VITALS: BP 114/59
[2020-04-22] MEDS: DOXAZOSIN MESYL 2 MG TAB PO SCH (21:39)
[2020-04-22] MEDS: ATORVASTATIN 20 MG TAB PO SCH (21:40)
[2020-04-22 22:00] VITALS: BP 122/64
[2020-04-23] MEDS: SODIUM CHLORIDE 0.9% 1,000 ML IV SCH ×4 (01:08→22:05)
[2020-04-23] MEDS: CARBIDOPA W LEVODOPA 25/100mg TABLET PO SCH ×4 (05:47→22:05)
[2020-04-23] MEDS: LEVOTHYROXINE SODIUM 25 MCG TAB PO SCH (05:47)
[2020-04-23 06:00] VITALS: BP 148/79
[2020-04-23] MEDS: SACUBITRIL-VALSARTAN 24mg/26mg TAB PO SCH ×2 (09:26→22:07)
[2020-04-23] MEDS: ENOXAPARIN SOD 40 MG/0.4 ML SYRINGE SC SCH (09:26)
[2020-04-23] MEDS: FAMOTIDINE 20 MG TAB PO SCH ×2 (09:26→22:08)
[2020-04-23] MEDS: cefTRIAXone 1GM/50ML D5W 50 ML IV SCH (09:26)
[2020-04-23] MEDS: CARVEDILOL 3.125 MG TAB PO SCH ×2 (09:27→22:07)
[2020-04-23] MEDS: dilTIAZem 120MG ER CAP PO SCH (09:28)
[2020-04-23] MEDS: FUROSEMIDE 20 MG TAB PO SCH (09:28)
[2020-04-23 09:47] VITALS: BP 159/74
[2020-04-23] MEDS: FLUCONAZOLE 200MG/100ML 100 ML IV SCH ×2 (10:27→12:19)
[2020-04-23 14:42] VITALS: BP 123/66
[2020-04-23 16:47] VITALS: BP 121/62
[2020-04-23] MEDS ORDERED: POTA10TA79 PO (16:49)
[2020-04-23] MEDS: HYDROcodone-ACET 5/325MG TAB PO PRN (17:10)
[2020-04-23] MEDS ORDERED: CHOL50007 PO (17:42)
[2020-04-23] MEDS ORDERED: DICL1GEL35 TD (17:43)
[2020-04-23] MEDS ORDERED: OMEG600C2 PO (17:50)
[2020-04-23] MEDS ORDERED: NIAC250C16 PO (17:50)
[2020-04-23] MEDS ORDERED: [UNRECOGNIZED DRUG - CODE] PO (17:51)
[2020-04-23] MEDS ORDERED: LACTCAP35 PO (17:56)
[2020-04-23] MEDS ORDERED: COEN1CAP8 PO (17:56)
[2020-04-23] MEDS ORDERED: METH1LOZ PO (17:56)
[2020-04-23] MEDS ORDERED: MAGN1POW PO (17:57)
[2020-04-23] MEDS ORDERED: RESV1TAB PO (17:58)
[2020-04-23] MEDS ORDERED: MULTTAB61 PO (17:59)
[2020-04-23] MEDS ORDERED: ACET1CAP14 PO (18:00)
[2020-04-23 20:00] VITALS: BP 139/65
[2020-04-23 22:00] VITALS: BP 139/65
[2020-04-23] MEDS: DOXAZOSIN MESYL 2 MG TAB PO SCH (22:05)
[2020-04-23] MEDS: ATORVASTATIN 20 MG TAB PO SCH (22:08)
[2020-04-24] MEDS: SODIUM CHLORIDE 0.9% 1,000 ML IV SCH ×3 (02:33→22:10)
[2020-04-24 05:00] VITALS: BP 150/81
[2020-04-24] MEDS: CARBIDOPA W LEVODOPA 25/100mg TABLET PO SCH ×3 (06:16→22:00)
[2020-04-24] MEDS: LEVOTHYROXINE SODIUM 25 MCG TAB PO SCH (06:17)
[2020-04-24 09:00] VITALS: BP 139/77
[2020-04-24 09:45] LABS: Folate (Folic Acid) > 24.00 ng/mL (5.38-24)
[2020-04-24] MEDS: cefTRIAXone 1GM/50ML D5W 50 ML IV SCH (09:52)
[2020-04-24] MEDS: FLUCONAZOLE 200MG/100ML 100 ML IV SCH ×2 (09:52→12:09)
[2020-04-24] MEDS: FAMOTIDINE 20 MG TAB PO SCH ×2 (09:53→22:00)
[2020-04-24] MEDS: SACUBITRIL-VALSARTAN 24mg/26mg TAB PO SCH ×2 (09:53→22:00)
[2020-04-24] MEDS: FUROSEMIDE 20 MG TAB PO SCH (09:53)
[2020-04-24] MEDS: ENOXAPARIN SOD 40 MG/0.4 ML SYRINGE SC SCH (09:54)
[2020-04-24] MEDS: dilTIAZem 120MG ER CAP PO SCH (09:54)
[2020-04-24] MEDS: HYDROcodone-ACET 5/325MG TAB PO PRN (09:55)
[2020-04-24] MEDS: CARVEDILOL 3.125 MG TAB PO SCH ×2 (09:58→22:00)
[2020-04-24 13:00] VITALS: BP 147/79
[2020-04-24 17:00] VITALS: BP 133/75
[2020-04-24] MEDS: DOXAZOSIN MESYL 2 MG TAB PO SCH (21:59)
[2020-04-24 22:00] VITALS: BP 134/71
[2020-04-24] MEDS: ATORVASTATIN 20 MG TAB PO SCH (22:00)
[2020-04-25] MEDS: SODIUM CHLORIDE 0.9% 1,000 ML IV SCH ×2 (03:41→11:45)
[2020-04-25 06:00] VITALS: BP 143/73
[2020-04-25] MEDS: LEVOTHYROXINE SODIUM 25 MCG TAB PO SCH (06:31)
[2020-04-25] MEDS: CARBIDOPA W LEVODOPA 25/100mg TABLET PO SCH ×2 (06:31→14:32)
[2020-04-25 09:00] VITALS: BP 139/59
[2020-04-25] MEDS: cefTRIAXone 1GM/50ML D5W 50 ML IV SCH (09:00)
[2020-04-25] MEDS: FLUCONAZOLE 200MG/100ML 100 ML IV SCH (10:00)
[2020-04-25] MEDS: dilTIAZem 120MG ER CAP PO SCH (10:13)
[2020-04-25] MEDS: FUROSEMIDE 20 MG TAB PO SCH (10:14)
[2020-04-25] MEDS: FAMOTIDINE 20 MG TAB PO SCH (10:14)
[2020-04-25] MEDS: CARVEDILOL 3.125 MG TAB PO SCH (10:14)
[2020-04-25] MEDS: ENOXAPARIN SOD 40 MG/0.4 ML SYRINGE SC SCH (10:15)
[2020-04-25] MEDS: SACUBITRIL-VALSARTAN 24mg/26mg TAB PO SCH (10:16)
[2020-04-25] MEDS ORDERED: FLUCONAZOLE 100 MG TAB PO ONE (10:30)
[2020-04-25 13:00] VITALS: BP 126/68
[2020-04-26] MEDS ORDERED: FLUCONAZOLE 100 MG TAB PO SCH (10:00)
== END 2020-04-25 15:30 | disposition home health service (06) | DRG 871 ==
LOC: EDBD 21:05 → ER 21:06 → OVERFLOW 21:07 → EAST 04-20 09:22
PROVIDERS: ADMIT Nurse Practitioner; ATTEND Family Medicine
DX: A41.9 Sepsis, unspecified organism (principal); G93.41 Metabolic encephalopathy; S32.019A Unspecified fracture of first lumbar vertebra, initial encounter for closed fracture; N39.0 Urinary tract infection, site not specified; K56.7 Ileus, unspecified; E44.0 Moderate protein-calorie malnutrition; E87.1 Hypo-osmolality and hyponatremia; I42.0 Dilated cardiomyopathy; E86.0 Dehydration; E03.9 Hypothyroidism, unspecified; I11.0 Hypertensive heart disease with heart failure; G20 Parkinson's disease; E78.00 Pure hypercholesterolemia, unspecified; E78.5 Hyperlipidemia, unspecified; F03.90 Unspecified dementia, unspecified severity, without behavioral disturbance, psychotic disturbance, mood disturbance, and anxiety; F17.200 Nicotine dependence, unspecified, uncomplicated; G25.81 Restless legs syndrome; G62.9 Polyneuropathy, unspecified; G89.18 Other acute postprocedural pain; G89.29 Other chronic pain; I35.1 Nonrheumatic aortic (valve) insufficiency; K57.30 Diverticulosis of large intestine without perforation or abscess without bleeding; M20.41 Other hammer toe(s) (acquired), right foot; M20.42 Other hammer toe(s) (acquired), left foot; N32.0 Bladder-neck obstruction; N40.0 Benign prostatic hyperplasia without lower urinary tract symptoms; Z79.899 Other long term (current) drug therapy; Z80.6 Family history of leukemia; Z81.8 Family history of other mental and behavioral disorders; Z82.49 Family history of ischemic heart disease and other diseases of the circulatory system; Z85.6 Personal history of leukemia; Z68.24 Body mass index [BMI] 24.0-24.9, adult; W18.39XA Other fall on same level, initial encounter; Y93.89 Activity, other specified; Y92.89 Other specified places as the place of occurrence of the external cause; Y99.8 Other external cause status
CPT/HCPCS: 36415; 70450; 71045; 71260; 74177; 74250; 80048; 80053; 81001; 82607; 82728; 82746; 83036; 83540; 83550; 83605; 83880; 84155; 84165; 84443; 84484; 85025; 85379; 85610; 85730; 87040; 87081; 87086; 87088; 93005; 93970; 95819; 97163; G0378; J0696; J1450

== ENCOUNTER 2020-05-12 19:21 | Inpatient (IN) | payer MEDICARE ==
[~2020-05-12] VITALS: Ht 182.9 cm; Wt 78.4 kg
[~2020-05-12 19:21] MED LIST changes: +ACET1CAP14 PO; +AMIO200T33 PO; -ASPI325T4 PO; -BENA40TA7 PO; -BRIM0.159 OP; +CARV6.25 PO; -CETI10TA93 PO; -CHOL20007 OR; +CHOL50007 PO; +COEN1CAP8 PO; +DICL1GEL35 TD; -DILT120C41 PO; +FURO1TAB33 PO; +GABA300C10 PO; -IBUP200C3 PO; +LACTCAP35 PO; -LATA0.0019 EACHEYE; -LEVO0.5S6 OP; -LORA-622 PO; +MAGN1POW PO; +MED20T PO; +METH1LOZ PO; +MULTTAB61 PO; +NIAC250C16 PO; -OLOP1DRO5 OP; +OMEG600C2 PO; +POTA10TA79 PO; -PSEUSYP56 OR; +RESV1TAB PO; +RIVA20TA PO; +SACU1TAB PO; +[UNRECOGNIZED DRUG - CODE] PO
[2020-05-12] MEDS ORDERED: SODIUM CHLORIDE 0.9% 1,000 ML IVB ONE (20:07)
[2020-05-12 22:10] LABS: Basophils # (auto) 0 10 ^3/uL (0-0.2); Basophils % (auto) 0.4 % (0.0-2.0); Eosinophils # (auto) 0.2 10 ^3/uL (0-0.8); Eosinophils % (auto) 2.2 % (0.0-7.0); Hematocrit 39.9 % (41.0-53.0); Hemoglobin 13.6 g/dL (13.5-17.5); Lymphocytes # (auto) 1.7 10 ^3/uL (0.4-5.4); Lymphocytes % (auto) 18.6 % (10.0-50.0); Mean Corpuscular Hemoglobin 30.9 pg (28.0-32.0); Mean Corpuscular Hgb Conc. 34.1 g/dL (32.0-36.0); Mean Corpuscular Volume 90.6 fL (80.0-100.0); Monocytes % (auto) 11.1 % (0.0-12.0); Neutrophils # (auto) 6.2 10 ^3/uL (1.6-8.6); Neutrophils % (auto) 67.7 % (37.0-80.0); Platelet Count (auto) 258 10^3/uL (140-450); Red Cell Distribution Width 15.1 % (11.8-14.3); White Blood Cell 9.2 10^3/uL (4.4-10.8)
[2020-05-12 22:20] LABS: INR 1.13 (0.9-1.15); Partial Thromboplastin Time 26.2 sec (23.64-32.05)
[2020-05-12 22:23] LABS: Chloride 102 mmol/L (98-107); Potassium 4.3 mmol/L (3.5-5.1); Sodium 130 mmol/L (136-145)
[2020-05-12 22:36] LABS: Alanine Aminotransferase 29 U/L (16-61); Albumin 2.5 g/dL (3.4-5.0); Alkaline Phosphatase 141 U/L (45-117); Anion Gap 8 (5-15); Aspartate Aminotransferase 27 U/L (15-37); BUN/Creatinine Ratio 33.7; Bilirubin, Total 0.3 mg/dL (0.2-1.0); Blood Urea Nitrogen 31 mg/dL (7-18); Calcium 8.3 mg/dL (8.5-10.1); Carbon Dioxide 20 mmol/L (21-32); GFR African American 103 mL/min; GFR Non-African American 85 mL/min; Glucose 101 mg/dL (74-106); Magnesium 2.1 mg/dL (1.6-2.6)
[2020-05-12] MEDS ORDERED: MORPHINE SULF INJ 2 MG/ML SYRINGE 1ML IV PRN ×2 (23:30)
[2020-05-12] MEDS ORDERED: DOCUSATE SOD 100 MG CAP PO PRN (23:30)
[2020-05-12] MEDS ORDERED: HYDROcodone-ACET 5/325MG TAB PO PRN (23:30)
[2020-05-12] MEDS ORDERED: NITROGLYCERIN 0.4 MG SL TAB SL PRN (23:30)
[2020-05-12] MEDS ORDERED: ACETAMINOPHEN 325 MG TAB PO PRN (23:30)
[2020-05-12] MEDS ORDERED: ONDANSETRON HCL 4 MG/2 ML VIAL IV PRN (23:30)
[2020-05-13] MEDS: SODIUM CHLORIDE 0.9% 1,000 ML IV SCH ×2 (00:23→16:19)
[2020-05-13 05:06] LABS: Urine Bacteria FEW /hpf (None Seen); Urine Blood 1+ /uL (Negative); Urine Hyaline Cast FEW /lpf (0 - 2); Urine Mucus FEW (None Seen); Urine Specific Gravity 1.023 (1.001-1.035); Urine WBC 72 /hpf (0 - 3)
[2020-05-13] MEDS ORDERED: LEVOTHYROXINE SODIUM 25 MCG TAB PO SCH (07:00)
[2020-05-13 07:24] LABS: Basophils # (auto) 0.1 10 ^3/uL (0-0.2); Basophils % (auto) 0.8 % (0.0-2.0); Eosinophils # (auto) 0.2 10 ^3/uL (0-0.8); Eosinophils % (auto) 2.6 % (0.0-7.0); Hematocrit 41.3 % (41.0-53.0); Lymphocytes # (auto) 1.8 10 ^3/uL (0.4-5.4); Lymphocytes % (auto) 23.2 % (10.0-50.0); Mean Corpuscular Hemoglobin 30.6 pg (28.0-32.0); Mean Corpuscular Hgb Conc. 33.8 g/dL (32.0-36.0); Mean Corpuscular Volume 90.6 fL (80.0-100.0); Monocytes # (auto) 0.8 10 ^3/uL (0-1.3); Monocytes % (auto) 10.7 % (0.0-12.0); Neutrophils # (auto) 4.9 10 ^3/uL (1.6-8.6); Neutrophils % (auto) 62.7 % (37.0-80.0); Platelet Count (auto) 248 10^3/uL (140-450); Red Blood Cells 4.55 10^6/uL (4.5-5.90); White Blood Cell 7.9 10^3/uL (4.4-10.8)
[2020-05-13 07:45] LABS: Calcium 8.9 mg/dL (8.5-10.1); Potassium 4.7 mmol/L (3.5-5.1)
[2020-05-13 07:49] LABS: BUN/Creatinine Ratio 30.3
[2020-05-13] MEDS: CARVEDILOL 3.125 MG TAB PO SCH ×2 (09:07→18:15)
[2020-05-13] MEDS: AMIODARONE HCL 200 MG TAB PO SCH (12:02)
[2020-05-13] MEDS ORDERED: cefTRIAXone 1GM/50ML D5W 50 ML IV ONE (12:45)
[2020-05-13] MEDS: SACUBITRIL-VALSARTAN 24mg/26mg TAB PO SCH ×2 (13:28→22:19)
[2020-05-13] MEDS: POTASSIUM CHL 10 Meq TABLET PO SCH (13:34)
[2020-05-13] MEDS: LEVOTHYROXINE SODIUM 50 MCG TAB PO SCH (13:34)
[2020-05-13] MEDS: FUROSEMIDE 20 MG TAB PO SCH (13:37)
[2020-05-13] MEDS: GABAPENTIN 300 MG CAP PO SCH ×2 (13:38→22:19)
[2020-05-13] MEDS ORDERED: AMIO200T33 PO (16:50)
[2020-05-13 18:04] VITALS: BP 135/74
[2020-05-13] MEDS: RIVAROXABAN 20 MG TAB PO SCH (18:15)
--- NOTE | 2020-05-13 19:30 | NUR ---
Opening Shift Note Received report from day shift RN Yanique. Assumed care of patient, patient is AOx3. Fall and safety precautions in place. No S/S of distress/SOB or pain. Patient has dinner tray and asks for assistance to eat. Patient assisted at this time and able to complete 100% of dinner. Instructed patient on his POC and to call for assist PRN, patient verbalized understanding and in agreement. Call light within reach and able to use. Will continue to monitor for changes Q1hr and PRN.
[2020-05-13 22:18] VITALS: BP 124/68
[2020-05-13] MEDS: ATORVASTATIN 20 MG TAB PO SCH (22:19)
--- NOTE | 2020-05-14 00:20 | NUR ---
Re: MRSA Swab MRSA swab has not been collected. Obtained sample and sent to lab a this time. Will continue to monitor.
--- NOTE | 2020-05-14 00:30 | NUR ---
Re: DDimer Patient DDimer 1.29 High. Per communication order, MD to be notified if DDimer lab result is high. Uknown if day shift RN notified MD. On-call hosp to update on patient condition. Awaiting call back. Will continue to monitor.
--- NOTE | 2020-05-14 02:00 | NUR ---
On-call Hosp paged Awaiting call back. Will continue to monitor.
--- NOTE | 2020-05-14 02:03 | NUR ---
Received Call back Updated MD on patient status, DDimer lab value, and PMH of coronary thrombus. Notified MD that this RN had called at 0030 with no response. Additionally, notified MD that this RN needed to ensure that MD was aware of lab results, per Ramesh REIS communication order. stated, "let them deal with it in the morning". Will continue to monitor.
[2020-05-14 05:06] VITALS: BP 143/88
[2020-05-14] MEDS: LEVOTHYROXINE SODIUM 50 MCG TAB PO SCH (06:21)
[2020-05-14 08:00] VITALS: BP 26/79
--- NOTE | 2020-05-14 08:30 | NUR ---
INFORMED DR MURRAY OF D-DIMER LAB RESULT
[2020-05-14] MEDS: SODIUM CHLORIDE 0.9% 1,000 ML IV SCH (08:41)
[2020-05-14] MEDS: CARVEDILOL 3.125 MG TAB PO SCH ×2 (08:47→17:16)
[2020-05-14] MEDS: cefTRIAXone 1GM/50ML D5W 50 ML IV SCH (08:47)
[2020-05-14 09:55] VITALS: BP 126/79
[2020-05-14] MEDS: AMIODARONE HCL 200 MG TAB PO SCH (10:17)
[2020-05-14] MEDS: SACUBITRIL-VALSARTAN 24mg/26mg TAB PO SCH ×2 (10:17→21:38)
[2020-05-14] MEDS: GABAPENTIN 300 MG CAP PO SCH ×2 (10:18→21:39)
[2020-05-14] MEDS: POTASSIUM CHL 10 Meq TABLET PO SCH (10:18)
[2020-05-14] MEDS: FUROSEMIDE 20 MG TAB PO SCH (10:30)
--- NOTE | 2020-05-14 11:14 | NUR ---
PATIENT OFF FLOOR FOR CT
[2020-05-14 13:00] VITALS: BP 124/79
[2020-05-14 16:29] VITALS: BP 121/76
--- NOTE | 2020-05-14 16:56 | NUR ---
PATIENTS DAUGHTER, ELLEN, CALLED. UPDATE ON PATIENT PROVIDED AFTER PASSWORD GIVEN.
--- NOTE | 2020-05-14 17:00 | NUR ---
DR SMITH (UROLOGIST) CONTACTED PERIOPERATIVE NURSE AND INFORMED HER HE WOULD NOT BE SEEING THIS PATIENT AND DR NAGEL SHOULD BE CONSULTED. PER PERIOPERATIVE NURSE, DR NAGEL WILL BE CONTACTED TOMORROW FOR CONSULT
[2020-05-14] MEDS: RIVAROXABAN 20 MG TAB PO SCH (17:16)
[2020-05-14] MEDS ORDERED: POTA10TA79 PO (18:10)
[2020-05-14] MEDS ORDERED: MEGE1SUS5 PO (18:10)
[2020-05-14] MEDS ORDERED: GABA300C10 PO (18:10)
[2020-05-14] MEDS ORDERED: LEVO50TA7 PO (18:10)
[2020-05-14] MEDS ORDERED: DOCU1CAP46 PO (18:10)
[2020-05-14] MEDS ORDERED: DILT-14 PO (18:10)
[2020-05-14] MEDS ORDERED: AMIO200T33 PO (18:10)
[2020-05-14] MEDS ORDERED: TAMS1CAP25 PO (18:10)
--- NOTE | 2020-05-14 19:30 | NUR ---
Opening Shift Note Assumed care of patient, patient is AOx3. Fall and safety precautions in place. No S/S of distress/SOB or pain. Patient repositioned for comfort. Instructed patient on his POC and to call for assist PRN, patient verbalized understanding and in agreement. Call light within reach and able to use. Will continue to monitor for changes Q1hr and PRN.
[2020-05-14] MEDS: ATORVASTATIN 20 MG TAB PO SCH (21:38)
[2020-05-14 22:00] VITALS: BP 109/56
[2020-05-15] VITALS (7 sets, daily range): BP systolic 118–141; BP diastolic 62–70
[2020-05-15] MEDS: SODIUM CHLORIDE 0.9% 1,000 ML IV SCH ×2 (00:32→18:00)
[2020-05-15] MEDS: LEVOTHYROXINE SODIUM 50 MCG TAB PO SCH (06:13)
--- NOTE | 2020-05-15 06:35 | NUR ---
IV insertion IV access obtained, via clean sterile technique by inserting 22 gauge catheter at left forearm on first attempt. IV secured properly. No trauma to site. Patient tolerated well. Addendum: 05/15/20 at 0636 by RICHARD SOSA RN RN Right* forearm
[2020-05-15] MEDS: CARVEDILOL 3.125 MG TAB PO SCH ×2 (08:38→18:00)
[2020-05-15] MEDS: cefTRIAXone 1GM/50ML D5W 50 ML IV SCH (08:38)
--- NOTE | 2020-05-15 08:50 | NUR ---
DR MURRAY BEDSIDE WITH PATIENT DISCUSSING PLAN OF CARE
--- NOTE | 2020-05-15 09:40 | NUR ---
Family updated on pt status , Alexandra, of [facility] updated on patient's status and condition. All questions and concerns addressed. verbalized understanding.
[2020-05-15] MEDS: FUROSEMIDE 20 MG TAB PO SCH (10:00)
[2020-05-15] MEDS: GABAPENTIN 300 MG CAP PO SCH ×2 (10:17→22:49)
[2020-05-15] MEDS: SACUBITRIL-VALSARTAN 24mg/26mg TAB PO SCH ×2 (10:17→22:48)
[2020-05-15] MEDS: AMIODARONE HCL 200 MG TAB PO SCH (10:17)
[2020-05-15] MEDS: POTASSIUM CHL 10 Meq TABLET PO SCH (10:17)
--- NOTE | 2020-05-15 15:55 | NUR ---
SENSITIVITY RESULTS INFORMED DR MURRAY OF SENSITIVITY RESULTS. ORDERS RECEIVED AND CARRIED OUT
[2020-05-15] MEDS ORDERED: levoFLOXacin 500MG 100 ML IV ONE (16:00)
[2020-05-15] MEDS: RIVAROXABAN 20 MG TAB PO SCH (16:46)
--- NOTE | 2020-05-15 19:15 | NUR ---
ARNAV BENEDICT (UROLOGY) ON UNIT
--- NOTE | 2020-05-15 19:20 | NUR ---
Opening Shift Note Assumed care of patient, patient is AOx3. Fall and safety precautions in place. No S/S of distress/SOB or pain. Patient repositioned for comfort. Instructed patient on his POC and to call for assist, patient verbalized understanding and in agreement. Call light within reach and able to use. Will continue to monitor for changes. Bed in lowest position, HOB at 30 degrees, side rails up x2.
[2020-05-15] MEDS: ATORVASTATIN 20 MG TAB PO SCH (22:48)
[2020-05-15] MEDS: TAMSULOSIN HYDROCHLORIDE 0.4 MG CAP PO SCH (22:48)
[2020-05-16 05:36] VITALS: BP 134/71
[2020-05-16] MEDS: LEVOTHYROXINE SODIUM 50 MCG TAB PO SCH (07:16)
--- NOTE | 2020-05-16 07:20 | NUR ---
End of Shift Note Endorsed care to dayshift nurse. At this time patient has no s/s of distress or SOB. No complaints.
--- NOTE | 2020-05-16 07:20 | NUR ---
Care endorsed to MULUGETA VILLANUEVA. Addendum: 05/16/20 at 1949 by Jamee Quigley RN RN Correction: time is for 19:20
--- NOTE | 2020-05-16 07:21 | NUR ---
Opening Shift Note Assumed care of patient, awake and alert x 3. No S/S of distress/SOB or pain. Instructed on POC and to call for assist PRN, will continue to monitor for changes Q1hr and PRN. Bed is set in lowest locked position with side rails up x 2 for safety and call light is within reach.
[2020-05-16 08:00] VITALS: BP 129/89
[2020-05-16] MEDS: CARVEDILOL 3.125 MG TAB PO SCH ×2 (08:02→18:38)
[2020-05-16] MEDS: levoFLOXacin 500MG 100 ML IV SCH (09:20)
[2020-05-16] MEDS: GABAPENTIN 300 MG CAP PO SCH ×2 (09:21→23:30)
[2020-05-16] MEDS: POTASSIUM CHL 10 Meq TABLET PO SCH (09:21)
[2020-05-16] MEDS: FUROSEMIDE 20 MG TAB PO SCH (09:21)
[2020-05-16] MEDS: SACUBITRIL-VALSARTAN 24mg/26mg TAB PO SCH ×2 (09:21→23:31)
[2020-05-16] MEDS: AMIODARONE HCL 200 MG TAB PO SCH (09:22)
[2020-05-16] MEDS: SODIUM CHLORIDE 0.9% 1,000 ML IV SCH ×2 (09:27→23:34)
[2020-05-16 09:34] VITALS: BP 129/89
--- NOTE | 2020-05-16 09:55 | NUR ---
MD Ramesh stoll at bedside Discussed plans of discharge with patient for 05/17/20. Patient verbalized understanding. Will proceed to notify family.
--- NOTE | 2020-05-16 10:52 | NUR ---
Spoke to patient's daughter, Janie After verifying the patient information password, notified Janie of plans for discharge on 05/17/20. Janie verbalized understanding and states she had no further questions at this time.
--- NOTE | 2020-05-16 12:31 | NUR ---
Nutrition Assessment Notes please see attached link for complete assessment Est. Energy Needs BW 77 [id number] kcal (25-30 kcal/kg BW), Est. Protein Needs: 77-92 gms/day (1.0-1.2 gms/kg BW). will reassess prn Addendum: 05/16/20 at [address] Amended: Links added.
[2020-05-16 12:53] VITALS: BP 93/57
[2020-05-16 16:38] VITALS: BP 102/62
[2020-05-16] MEDS: RIVAROXABAN 20 MG TAB PO SCH (17:30)
[2020-05-16] MEDS: TAMSULOSIN HYDROCHLORIDE 0.4 MG CAP PO SCH (18:38)
[2020-05-16 21:46] VITALS: BP 109/60
[2020-05-16] MEDS: ATORVASTATIN 20 MG TAB PO SCH (23:31)
[2020-05-17 05:54] VITALS: BP 143/75
[2020-05-17] MEDS: LEVOTHYROXINE SODIUM 50 MCG TAB PO SCH (07:06)
[2020-05-17 09:00] VITALS: BP 157/110
--- NOTE | 2020-05-17 09:22 | NUR ---
Family refused procedure Patient is scheduled to have a procedure Monday 05/21 for a "transurethral resection of prostate gland, suprapubic catheter placement". His daughter, Janie, called and asked about him being discharged today. She was notified by this nurse that he is scheduled for the procedure Thursday. She stated that she told a previous nurse yesterday that she did not want the procedure. She said she doesn't want it done at this time and that she wants the patient discharged today as he has a radiology video appointment at [address] Chandler was informed of the family's refusal for procedure and said he would discharge the patient today or tomorrow, but that it would not occur before 11 am. This nurse called and notified the daughter, Janie.
[2020-05-17] MEDS: POTASSIUM CHL 10 Meq TABLET PO SCH (09:41)
[2020-05-17] MEDS: AMIODARONE HCL 200 MG TAB PO SCH (09:41)
[2020-05-17] MEDS: CARVEDILOL 3.125 MG TAB PO SCH (09:41)
[2020-05-17] MEDS: levoFLOXacin 500MG 100 ML IV SCH (09:41)
[2020-05-17] MEDS: SACUBITRIL-VALSARTAN 24mg/26mg TAB PO SCH (09:41)
[2020-05-17] MEDS: FUROSEMIDE 20 MG TAB PO SCH (09:42)
[2020-05-17] MEDS: GABAPENTIN 300 MG CAP PO SCH (09:42)
--- NOTE | 2020-05-17 12:45 | NUR ---
Notified SS of [employer] Notified SS that patient already has Home Health and just needs to resume. She will look into it and contact this nurse after checking authorization.
[2020-05-17 13:00] VITALS: BP 135/75
--- NOTE | 2020-05-17 15:16 | NUR ---
Discharge Removed IV. Removed ID bands. Removed Rodriguez catheter. Family stated he had the Rodriguez from home and it needs to be in. She called Home Health and they said they can't come out tonight to replace it. This nurse inserted a new Rodriguez catheter. Went over discharge paperwork with daughter, Janie. Gave prescription to daughter. Per addiction social worker, home health has been resumed. Took patient out to private vehicle with all belongings and paperwork. Daughter signed paperwork and patient left in private vehicle with daughter.
--- NOTE | 2020-05-17 15:23 | NUR ---
Tele sent to ICU Telemetry was removed per hospital procotol and sent to ICU.
--- NOTE | 2020-05-17 15:35 | NUR ---
D/C Planning Per consult to resume service with [facility] for physical therapy. Faxed clinical information to [facility]. Per Génesis with agency [phone] they will resume service within 24-48hrs upon d/c day.
--- NOTE | 2020-05-17 15:38 | NUR ---
assessment Patient discharged home prior to assessment for living situation. Patient does live home with family and family transported patient home. Addendum: 05/17/20 at 1539 by Cathie BUNDY Amended: Links added.
== END 2020-05-17 15:15 | disposition home health service (06) | DRG 871 ==
LOC: EDBD 19:21 → ER 19:21 → TELE 19:22 → TELE-CENTR 05-13 17:33
PROVIDERS: ADMIT Hospitalist; ATTEND Family Medicine
DX: A41.9 Sepsis, unspecified organism (principal); G93.41 Metabolic encephalopathy; R65.21 Severe sepsis with septic shock; N39.0 Urinary tract infection, site not specified; I42.8 Other cardiomyopathies; I50.20 Unspecified systolic (congestive) heart failure; N13.8 Other obstructive and reflux uropathy; G62.9 Polyneuropathy, unspecified; E03.9 Hypothyroidism, unspecified; N40.1 Benign prostatic hyperplasia with lower urinary tract symptoms; R33.8 Other retention of urine; N36.8 Other specified disorders of urethra; B95.2 Enterococcus as the cause of diseases classified elsewhere; E78.5 Hyperlipidemia, unspecified; F03.90 Unspecified dementia, unspecified severity, without behavioral disturbance, psychotic disturbance, mood disturbance, and anxiety; I48.91 Unspecified atrial fibrillation; I25.10 Atherosclerotic heart disease of native coronary artery without angina pectoris; I11.0 Hypertensive heart disease with heart failure; Z87.440 Personal history of urinary (tract) infections; Z80.6 Family history of leukemia; Z82.49 Family history of ischemic heart disease and other diseases of the circulatory system
CPT/HCPCS: 36415; 51702; 70450; 71045; 74176; 80048; 80053; 80061; 81001; 83605; 83735; 84443; 84484; 85025; 85379; 85610; 85730; 87040; 87081; 87086; 87088; 87186; 93005; 93306; 96361; 96365; G0378; J0696; J1956

== ENCOUNTER → 2020-05-24 | Outpatient (CLI) | payer MEDICARE ==
[~2020-05-24] MED LIST changes: -ACET1CAP14 PO; -DICL1GEL35 TD; +DICL1GEL50 TD; +DILT-14 PO; +DOCU1CAP46 PO; -LACTCAP35 PO; -LEVO25TA6 PO; +LEVO50TA7 PO; -MAGN1POW PO; -MED20T PO; +MEGE1SUS5 PO; +MULT-1018 PO; -MULTTAB61 PO; +POTA10TA32 PO; -POTA10TA79 PO; +TAMS1CAP25 PO
== END | disposition home or self-care (01) ==
LOC: LAB 15:44
DX: I11.0 Hypertensive heart disease with heart failure (principal); I50.20 Unspecified systolic (congestive) heart failure; N39.0 Urinary tract infection, site not specified
CPT/HCPCS: 36415; 84439; 84443; 87086

== ENCOUNTER 2020-12-03 15:33 | Emergency (ER) | payer MEDICARE ==
[~2020-12-03] VITALS: Ht 182.9 cm; Wt 86.2 kg
[2020-12-03] MEDS ORDERED: EPINEPHrine HCL 1 MG/10 ML SYRG IV ONE (15:37)
[2020-12-03] MEDS ORDERED: SODIUM BICARBONATE 8.4% INJ 50ML SYRINGE IV ONE (15:37)
[2020-12-03] MEDS ORDERED: NOREPINEPHRINE 8 MG/250ML KIT 250 ML IV ONE (15:56)
[2020-12-03] MEDS ORDERED: MIDAZOLAM DRIP 50 mg/50mL 50 ML IV ONE (15:56)
[2020-12-03] MEDS ORDERED: EPINEPHrine HCL 1 MG/10 ML SYRG ONE (16:09)
[2020-12-03] MEDS ORDERED: EPINEPHrine HCL 250 ML IV ONE ×2 (16:15)
[2020-12-03] MEDS ORDERED: MORPHINE SULFATE INJECTION 2 MG/ML SYRG ONE (17:17)
[2020-12-03 18:46] LABS: Basophils # (auto) 0.1 10 ^3/uL (0-0.2); Eosinophils # (auto) 0.1 10 ^3/uL (0-0.8)
[2020-12-03 18:48] LABS: Basophils % (auto) 0.5 % (0.0-2.0); Eosinophils % (auto) 0.7 % (0.0-7.0); Hematocrit 24.1 % (41.0-53.0); Hemoglobin 7.6 g/dL (13.5-17.5); Lymphocytes # (auto) 4.8 10 ^3/uL (0.4-5.4); Lymphocytes % (auto) 25.2 % (10.0-50.0); Mean Corpuscular Hemoglobin 29.3 pg (28.0-32.0); Mean Corpuscular Hgb Conc. 31.5 g/dL (32.0-36.0); Mean Corpuscular Volume 93.1 fL (80.0-100.0); Monocytes # (auto) 0.2 10 ^3/uL (0-1.3); Monocytes % (auto) 1.2 % (0.0-12.0); Neutrophils # (auto) 13.9 10 ^3/uL (1.6-8.6); Neutrophils % (auto) 72.4 % (37.0-80.0); Nucleated Red Blood Cells % 0.1 %; Red Blood Cells 2.59 10^6/uL (4.5-5.90); Red Cell Distribution Width 15.9 % (11.8-14.3); White Blood Cell 19.2 10^3/uL (4.4-10.8)
[2020-12-03 18:53] LABS: INR 1.3 (0.9-1.15); Partial Thromboplastin Time 40.2 sec (23.0-31.2)
[2020-12-03 18:55] LABS: Albumin 1.3 g/dL (3.4-5.0); Calcium 6.8 mg/dL (8.5-10.1); Magnesium 1.9 mg/dL (1.6-2.6); Potassium 4.1 mmol/L (3.5-5.1)
[2020-12-03 19:03] LABS: BUN/Creatinine Ratio 14.3; Bilirubin, Total 0.6 mg/dL (0.2-1.0); CRP High Sensitivity 14.8 mg/dL (< 0.3); Total Protein 4.4 g/dL (6.4-8.2)
== END 2020-12-03 17:26 ==
LOC: EDBD 15:33 → ER 15:36
DX: I46.9 Cardiac arrest, cause unspecified (principal); I11.0 Hypertensive heart disease with heart failure; I50.9 Heart failure, unspecified; E78.5 Hyperlipidemia, unspecified
CPT/HCPCS: 31500; 36415; 36600; 80053; 82728; 82805; 83615; 83735; 83880; 84484; 85025; 85610; 85730; 86141; 87040; 87077; 87186; 92950; 93005; 99291; J0171; J2250; J2270; 94002